=== PATIENT | male | born 1955 | race Caucasian/White ===

== ENCOUNTER 2017-12-14 12:03 | Inpatient (IN) | payer OTHER, BC ==
[2017-12-14 12:18] LABS: ADD MAN DIFF? NO
[2017-12-14] MEDS: SOD CHLORIDE 0.9% 1,000 ML IV ×2 (12:18→14:00)
[2017-12-14 12:20] LABS: WHITE BLOOD COUNT 12.7 10^3/ul (4.8-10.8)
[2017-12-14 12:20] LABS: BASOPHIL # 0.1 10^3/ul (0.0-0.1); BASOPHILS % 0.4 % (0.0-2.0); EOSINOPHILS # 0.3 10^3/ul (0.0-0.5); EOSINOPHILS % 2.1 % (0.0-7.0); HEMATOCRIT 42.4 % (42.0-52.0); HEMOGLOBIN 13.8 g/dl (14.0-18.0); LYMPHOCYTES # 3.5 10^3/ul (0.8-2.9); LYMPHOCYTES % 27.6 % (15.0-51.0); MEAN CORPUSCULAR HEMOGLOBIN 29.4 pg (29.0-33.0); MEAN CORPUSCULAR HGB CONC 32.5 g/dl (32.0-37.0); MEAN CORPUSCULAR VOLUME 90.4 fl (82.0-101.0); MEAN PLATELET VOLUME 11.3 fl (7.4-10.4); MONOCYTE # 0.2 10^3/ul (0.3-0.9); MONOCYTES % 1.4 % (0.0-11.0); NEUTROPHIL # 8.3 10^3/ul (1.6-7.5); NEUTROPHILS % 65.5 % (39.0-77.0); PLATELET COUNT 253 10^3/UL (140-415); RED BLOOD COUNT 4.69 10^6/ul (4.70-6.10); RED CELL DISTRIBUTION WIDTH 12.6 % (11.5-14.5)
[2017-12-14] MEDS ORDERED: IODIXANOL LOCM 100 ML BTL (12:20)
[2017-12-14] MEDS ORDERED: HEPARIN 1000 UNITS/ML 10 ML INJ (12:20)
[2017-12-14] MEDS ORDERED: LIDOCAINE 1% (MDV) 20 ML INJ (12:20)
[2017-12-14] MEDS ORDERED: NITROGLYCERIN (IC) 100 MCG/ML INJ (12:21)
[2017-12-14] MEDS ORDERED: FENTAnyl 50 MCG/ML VIAL (12:21)
[2017-12-14] MEDS ORDERED: VERAPAMIL 5 MG INJ (12:21)
[2017-12-14] MEDS ORDERED: SOD CHLORIDE 0.9% 500 ML (12:21)
[2017-12-14] MEDS ORDERED: MIDAZOLAM 1 MG/ML 2 ML INJ (12:21)
[2017-12-14] MEDS ORDERED: PROPOFOL 0 ML (12:23)
[2017-12-14] MEDS ORDERED: POTASSIUM CHLORIDE 50 ML (12:24)
[2017-12-14] MEDS ORDERED: PROPOFOL 100 ML ×2 (12:26→17:42)
[2017-12-14] MEDS ORDERED: ONDANSETRON 4 MG INJ IV (12:30)
[2017-12-14] MEDS ORDERED: ACETAMINOPHEN 325 MG TAB PO (12:30)
[2017-12-14 12:37] LABS: INR 1.35; PROTIME 16.9 Sec (11.9-14.9); PT RATIO 1.3
[2017-12-14 12:39] LABS: ANION GAP 23 (8-16); CHLORIDE 105 mmol/L (97-110)
[2017-12-14 12:42] LABS: BLOOD UREA NITROGEN 18 mg/dl (7-20); CREATININE 1.07 mg/dl (0.61-1.24); POTASSIUM 4.4 mmol/L (3.5-5.1); SODIUM 139 mmol/L (135-144)
[2017-12-14 12:44] LABS: CALCIUM 7.7 mg/dl (8.4-10.2); CARBON DIOXIDE 15 mmol/L (21-31); GLUCOSE 374 mg/dl (70-220)
[2017-12-14] MEDS ORDERED: CA CHLORIDE 10% 10 ML SYRINGE (12:47)
[2017-12-14 12:50] LABS: B-TYPE NATRIURETIC PEPTIDE 882 PG/ML (0-125)
[2017-12-14 12:52] LABS: TROPONIN-I 0.133 ng/ml (0.00-0.12)
[2017-12-14] MEDS ORDERED: MAGNESIUM SULFATE 2 GM/50 ML 50 ML (12:59)
[2017-12-14] MEDS ORDERED: ASPIRIN 325 MG TAB (13:14)
[2017-12-14] MEDS ORDERED: TICAGRELOR 90 MG TABLET (13:14)
[2017-12-14] MEDS ORDERED: VECURONIUM 10 MG VIAL IV (14:30)
[2017-12-14] MEDS ORDERED: VECURONIUM 100 MG in DEXTROSE 5% 100 ML IV (14:30)
[2017-12-14] MEDS ORDERED: PROPOFOL 100 ML IV (14:30)
[2017-12-14] MEDS ORDERED: hydrALAzine 20 MG INJ (14:55)
[2017-12-14] MEDS: hydrALAzine 20 MG INJ IV (15:00)
[2017-12-14] MEDS: BENAZEPRIL 20 MG TAB NGT (16:44)
[2017-12-14] MEDS: PROPOFOL 100 ML IV (18:00)
[2017-12-14 19:23] LABS: CREATINE KINASE 714 IU/L (23-200)
[2017-12-14 19:31] LABS: ADD UMIC YES; UR ASCORBIC ACID NEGATIVE (NEGATIVE); UR BILIRUBIN (Dip) NEGATIVE (NEGATIVE); UR BLOOD (Dip) 1+ mg/dL (NEGATIVE); UR CLARITY SLIGHTLY CLOUDY (CLEAR); UR COLOR YELLOW (YELLOW); UR GLUCOSE (Dip) 1+ mg/dL (NEGATIVE); UR KETONES (Dip) NEGATIVE (NEGATIVE); UR LEUKOCYTE ESTERASE (Dip) NEGATIVE Leu/ul (NEGATIVE); UR NITRITE (Dip) NEGATIVE (NEGATIVE); UR RBC 8 /HPF (0-5); UR SPECIFIC GRAVITY (Dip) 1.043 (1.003-1.030); UR TOTAL PROTEIN (Dip) 1+ mg/dl (NEGATIVE); UR UROBILINOGEN (Dip) NEGATIVE (NEGATIVE); UR WBC 9 /HPF (0-5)
[2017-12-14 19:38] LABS: AMPHETAMINE/METHAMPHETAMINE Negative (NEGATIVE); BARBITURATES Negative (NEGATIVE); BENZODIAZEPINES Positive (NEGATIVE); CANNABINOIDS Negative (NEGATIVE); COCAINE Negative (NEGATIVE); OPIATES Negative (NEGATIVE)
[2017-12-14 20:14] LABS: AADO2 Arterial 76.5 mmHg (7.0-24.0); Allen Test ACCEPTAB; Arterial Base Excess -2.7 mmol/L (-3.0-3); Arterial Blood Gas Oxygen Sat 97.4 mmHG (95.0-98.0); Arterial COHb 0.3 % (0.0-3.0); Arterial Fraction of Oxyhgb 96.8 % (93.0-99.0); Arterial HCO3 19.5 mmol/L (22.0-26.0); Arterial MetHb 0.3 % (0.0-1.5); Arterial Total Hemglobin 15.5 g/dl (12.0-18.0); MODE VENT - AC; Site Left Radial
[2017-12-14] MEDS: ATORVASTATIN 80 MG TAB PO (21:11)
[2017-12-14] MEDS: TICAGRELOR 90 MG TABLET PO (21:12)
[2017-12-15] MEDS ORDERED: ONDANSETRON 4 MG INJ IV
[2017-12-15] MEDS: ACETAMINOPHEN 325 MG TAB PO ×2 (00:13→07:44)
[2017-12-15 00:29] LABS: CREATINE KINASE 1204 IU/L (23-200)
[2017-12-15 00:42] LABS: CK INDEX 2.1
[2017-12-15 00:46] LABS: ADD UMIC YES; UR ASCORBIC ACID NEGATIVE (NEGATIVE); UR BILIRUBIN (Dip) NEGATIVE (NEGATIVE); UR BLOOD (Dip) 2+ mg/dL (NEGATIVE); UR CLARITY SLIGHTLY CLOUDY (CLEAR); UR COLOR YELLOW (YELLOW); UR GLUCOSE (Dip) NEGATIVE (NEGATIVE); UR KETONES (Dip) NEGATIVE (NEGATIVE); UR LEUKOCYTE ESTERASE (Dip) TRACE Leu/ul (NEGATIVE); UR NITRITE (Dip) NEGATIVE (NEGATIVE); UR RBC 2 /HPF (0-5); UR SPECIFIC GRAVITY (Dip) 1.031 (1.003-1.030); UR TOTAL PROTEIN (Dip) 1+ mg/dl (NEGATIVE); UR UROBILINOGEN (Dip) NEGATIVE (NEGATIVE); UR WBC 6 /HPF (0-5)
[2017-12-15] MEDS: PROPOFOL 100 ML IV ×2 (01:36→06:07)
[2017-12-15] MEDS: SOD CHLORIDE 0.9% 1,000 ML IV (01:43)
[2017-12-15 05:55] LABS: ADD MAN DIFF? NO
[2017-12-15 06:01] LABS: BASOPHILS % 0.2 % (0.0-2.0); HEMATOCRIT 40.5 % (42.0-52.0); HEMOGLOBIN 13.7 g/dl (14.0-18.0); MEAN CORPUSCULAR HEMOGLOBIN 29.3 pg (29.0-33.0); MEAN CORPUSCULAR HGB CONC 33.8 g/dl (32.0-37.0); MEAN CORPUSCULAR VOLUME 86.7 fl (82.0-101.0); MEAN PLATELET VOLUME 11.7 fl (7.4-10.4); MONOCYTES % 5.7 % (0.0-11.0); NEUTROPHILS % 87.4 % (39.0-77.0); PLATELET COUNT 244 10^3/UL (140-415); RED BLOOD COUNT 4.67 10^6/ul (4.70-6.10); RED CELL DISTRIBUTION WIDTH 13.2 % (11.5-14.5)
[2017-12-15 06:01] LABS: WHITE BLOOD COUNT 17.2 10^3/ul (4.8-10.8)
[2017-12-15] MEDS: PANTOPRAZOLE (EC) 40 MG TAB PO (06:07)
[2017-12-15 06:37] LABS: CHOL/HDL RATIO 4.2 RATIO; HDL CHOLESTEROL 29 mg/dl (30-78); LDL CHOLESTEROL,CALCULATED 67 mg/dl; TRIGLYCERIDES 129 mg/dl (0-149)
[2017-12-15 06:37] LABS: CHOLESTEROL 122 mg/dl (100-200)
[2017-12-15 06:39] LABS: BLOOD UREA NITROGEN 22 mg/dl (7-20); CALCIUM 8.5 mg/dl (8.4-10.2); CARBON DIOXIDE 22 mmol/L (21-31); CHLORIDE 110 mmol/L (97-110); CREATININE 1.19 mg/dl (0.61-1.24); GLUCOSE 115 mg/dl (70-220); MAGNESIUM 1.7 mg/dl (1.7-2.5); PHOSPHORUS 3.5 mg/dl (2.5-4.9); SODIUM 144 mmol/L (135-144)
[2017-12-15 06:58] LABS: THYROID STIMULATING HORMONE 0.299 MIU/L (0.465-4.680)
[2017-12-15 07:40] LABS: ANION GAP 15 (8-16)
[2017-12-15 07:43] LABS: POTASSIUM 3.3 mmol/L (3.5-5.1)
[2017-12-15] MEDS: BENAZEPRIL 20 MG TAB NGT (07:44)
[2017-12-15] MEDS: TICAGRELOR 90 MG TABLET PO ×2 (07:46→20:31)
[2017-12-15 08:23] LABS: AADO2 Arterial 70.1 mmHg (7.0-24.0); Allen Test ACCEPTAB; Arterial Base Excess -0.2 mmol/L (-3.0-3); Arterial Blood Gas Oxygen Sat 97.6 mmHG (95.0-98.0); Arterial COHb 0.8 % (0.0-3.0); Arterial Fraction of Oxyhgb 96.8 % (93.0-99.0); Arterial HCO3 22.1 mmol/L (22.0-26.0); Arterial MetHb 0 % (0.0-1.5); Arterial Total Hemglobin 14.7 g/dl (12.0-18.0); Arterial pCO2 30.1 mmhg (35-45); MODE VENT - AC; Site Left Radial
[2017-12-15] MEDS: ASPIRIN (EC) 81 MG TAB PO (09:00)
[2017-12-15] MEDS ORDERED: LORAZEPAM 2 MG INJ (10:19)
[2017-12-15] MEDS: SPIRONOLACTONE 25 MG TAB NGT (10:30)
[2017-12-15] MEDS ORDERED: POTASSIUM CHLORIDE 50 ML IVPB ×2 (10:30→11:30)
[2017-12-15] MEDS: POTASSIUM CHLORIDE 100 ML IVPB (11:00)
[2017-12-15] MEDS: METOPROLOL 5 MG INJ IV ×2 (12:50→20:22)
[2017-12-15] MEDS: MAGNESIUM SULFATE 2 GM/50 ML 50 ML IVPB (13:06)
[2017-12-15] MEDS: LORAZEPAM 2 MG INJ IV (13:09)
[2017-12-15] MEDS: MIDAZOLAM (DRIP) 50 mg/50 mL 50 ML IV (13:15)
[2017-12-15] MEDS: LEVETIRACETAM 500 MG TAB NGT ×2 (20:29→22:07)
[2017-12-15] MEDS: ATORVASTATIN 80 MG TAB PO (20:30)
[2017-12-15] MEDS: FAMOTIDINE 20 MG TAB NGT (20:30)
[2017-12-16] MEDS: MIDAZOLAM (DRIP) 50 mg/50 mL 50 ML IV (00:38)
[2017-12-16] MEDS: METOPROLOL 5 MG INJ IV ×3 (03:29→11:22)
[2017-12-16] MEDS: hydrALAzine 20 MG INJ IV ×3 (05:40→23:15)
[2017-12-16] MEDS: PROPOFOL 100 ML IV (05:43)
[2017-12-16 05:46] LABS: ADD MAN DIFF? NO
[2017-12-16 05:54] LABS: BASOPHILS % 0.1 % (0.0-2.0); EOSINOPHILS % 0.3 % (0.0-7.0); HEMATOCRIT 39.7 % (42.0-52.0); HEMOGLOBIN 13.1 g/dl (14.0-18.0); LYMPHOCYTES # 1.2 10^3/ul (0.8-2.9); LYMPHOCYTES % 9.2 % (15.0-51.0); MEAN CORPUSCULAR HEMOGLOBIN 29.4 pg (29.0-33.0); MEAN PLATELET VOLUME 11.8 fl (7.4-10.4); MONOCYTE # 0.9 10^3/ul (0.3-0.9); MONOCYTES % 6.6 % (0.0-11.0); NEUTROPHIL # 11.3 10^3/ul (1.6-7.5); NEUTROPHILS % 83.4 % (39.0-77.0); PLATELET COUNT 227 10^3/UL (140-415); RED BLOOD COUNT 4.46 10^6/ul (4.70-6.10); RED CELL DISTRIBUTION WIDTH 13.2 % (11.5-14.5)
[2017-12-16 05:54] LABS: WHITE BLOOD COUNT 13.5 10^3/ul (4.8-10.8)
[2017-12-16 06:40] LABS: ANION GAP 12 (8-16); BLOOD UREA NITROGEN 30 mg/dl (7-20); CALCIUM 8.6 mg/dl (8.4-10.2); CARBON DIOXIDE 25 mmol/L (21-31); CHLORIDE 112 mmol/L (97-110); CREATININE 1.16 mg/dl (0.61-1.24); GLUCOSE 124 mg/dl (70-220); MAGNESIUM 2.3 mg/dl (1.7-2.5); POTASSIUM 3.7 mmol/L (3.5-5.1); SODIUM 145 mmol/L (135-144)
[2017-12-16] MEDS: SPIRONOLACTONE 25 MG TAB NGT (07:55)
[2017-12-16] MEDS: ASPIRIN (EC) 81 MG TAB PO (07:55)
[2017-12-16] MEDS: LEVETIRACETAM 500 MG TAB NGT (07:55)
[2017-12-16] MEDS: FAMOTIDINE 20 MG TAB NGT ×2 (07:55→20:24)
[2017-12-16] MEDS: TICAGRELOR 90 MG TABLET PO ×2 (08:06→20:26)
[2017-12-16 08:13] LABS: Allen Test ACCEPTAB; Arterial Base Excess 0.1 mmol/L (-3.0-3); Arterial COHb 0.8 % (0.0-3.0); Arterial Fraction of Oxyhgb 95.9 % (93.0-99.0); Arterial HCO3 23.3 mmol/L (22.0-26.0); Arterial MetHb 0.3 % (0.0-1.5); Arterial Total Hemglobin 14.1 g/dl (12.0-18.0); Arterial pCO2 33.6 mmhg (35-45); MODE VENT - AC; Site Right Radial
[2017-12-16] MEDS: BENAZEPRIL 20 MG TAB NGT ×3 (08:29→13:28)
[2017-12-16] MEDS: morphine 2 MG INJ IV ×3 (15:28→20:42)
[2017-12-16] MEDS: ATORVASTATIN 80 MG TAB PO (20:24)
[2017-12-16] MEDS: LEVETIRACETAM (100 MG/ML) 5ML CUP NGT (20:25)
[2017-12-17] MEDS: METOPROLOL 5 MG INJ IV ×4 (01:59→18:17)
[2017-12-17] MEDS: MIDAZOLAM (DRIP) 50 mg/50 mL 50 ML IV (03:03)
[2017-12-17 04:57] LABS: ADD MAN DIFF? NO
[2017-12-17] MEDS: hydrALAzine 20 MG INJ IV ×3 (05:00→18:16)
[2017-12-17 05:01] LABS: BASOPHILS % 0.2 % (0.0-2.0); EOSINOPHILS % 0.1 % (0.0-7.0); HEMATOCRIT 39.9 % (42.0-52.0); HEMOGLOBIN 13.2 g/dl (14.0-18.0); LYMPHOCYTES # 0.9 10^3/ul (0.8-2.9); LYMPHOCYTES % 7.2 % (15.0-51.0); MEAN CORPUSCULAR HEMOGLOBIN 29.5 pg (29.0-33.0); MEAN CORPUSCULAR HGB CONC 33.1 g/dl (32.0-37.0); MEAN CORPUSCULAR VOLUME 89.3 fl (82.0-101.0); MEAN PLATELET VOLUME 11.7 fl (7.4-10.4); MONOCYTE # 0.8 10^3/ul (0.3-0.9); MONOCYTES % 6.4 % (0.0-11.0); NEUTROPHIL # 11.1 10^3/ul (1.6-7.5); NEUTROPHILS % 85.6 % (39.0-77.0); PLATELET COUNT 262 10^3/UL (140-415); RED BLOOD COUNT 4.47 10^6/ul (4.70-6.10); RED CELL DISTRIBUTION WIDTH 13.4 % (11.5-14.5)
[2017-12-17] MEDS: morphine 2 MG INJ IV ×2 (05:01→17:23)
[2017-12-17 05:31] LABS: ANION GAP 11 (8-16); BLOOD UREA NITROGEN 37 mg/dl (7-20); CALCIUM 8.9 mg/dl (8.4-10.2); CARBON DIOXIDE 27 mmol/L (21-31); CHLORIDE 113 mmol/L (97-110); CREATININE 1.03 mg/dl (0.61-1.24); GLUCOSE 151 mg/dl (70-220); MAGNESIUM 2.1 mg/dl (1.7-2.5); PHOSPHORUS 2.8 mg/dl (2.5-4.9); POTASSIUM 3.9 mmol/L (3.5-5.1); SODIUM 147 mmol/L (135-144)
[2017-12-17] MEDS: FAMOTIDINE 20 MG TAB NGT ×2 (09:07→20:04)
[2017-12-17] MEDS: ASPIRIN (EC) 81 MG TAB PO (09:07)
[2017-12-17] MEDS: CHLORTHALIDONE 25 MG TAB GTB (09:07)
[2017-12-17] MEDS: SPIRONOLACTONE 25 MG TAB NGT (09:07)
[2017-12-17] MEDS: BENAZEPRIL 40 MG TAB NGT (09:08)
[2017-12-17] MEDS: LEVETIRACETAM (100 MG/ML) 5ML CUP NGT ×2 (09:09→20:03)
[2017-12-17] MEDS: TICAGRELOR 90 MG TABLET PO ×2 (09:11→20:04)
[2017-12-17] MEDS: AMLODIPINE 2.5 MG TAB NGT (17:34)
[2017-12-17] MEDS: ACETAMINOPHEN 325 MG TAB PO (20:03)
[2017-12-17] MEDS: ATORVASTATIN 80 MG TAB PO (20:04)
[2017-12-18] MEDS: METOPROLOL 5 MG INJ IV ×3 (00:06→05:53)
[2017-12-18] MEDS: hydrALAzine 20 MG INJ IV ×2 (01:06→05:52)
[2017-12-18] MEDS: morphine 2 MG INJ IV (01:07)
[2017-12-18 05:40] LABS: ADD MAN DIFF? NO
[2017-12-18 05:46] LABS: WHITE BLOOD COUNT 14.2 10^3/ul (4.8-10.8)
[2017-12-18 05:46] LABS: BASOPHILS % 0.1 % (0.0-2.0); EOSINOPHILS % 0.1 % (0.0-7.0); HEMATOCRIT 40.4 % (42.0-52.0); HEMOGLOBIN 13.1 g/dl (14.0-18.0); LYMPHOCYTES % 6.9 % (15.0-51.0); MEAN CORPUSCULAR HEMOGLOBIN 29.2 pg (29.0-33.0); MEAN CORPUSCULAR HGB CONC 32.4 g/dl (32.0-37.0); MEAN CORPUSCULAR VOLUME 90.2 fl (82.0-101.0); MEAN PLATELET VOLUME 11.8 fl (7.4-10.4); MONOCYTE # 1.2 10^3/ul (0.3-0.9); MONOCYTES % 8.5 % (0.0-11.0); NEUTROPHIL # 11.9 10^3/ul (1.6-7.5); NEUTROPHILS % 83.9 % (39.0-77.0); PLATELET COUNT 248 10^3/UL (140-415); RED BLOOD COUNT 4.48 10^6/ul (4.70-6.10); RED CELL DISTRIBUTION WIDTH 13.5 % (11.5-14.5)
[2017-12-18 06:00] LABS: ALANINE AMINOTRANSFERASE 50 IU/L (13-69); ALBUMIN 3.7 g/dl (3.3-4.9); ALBUMIN/GLOBULIN RATIO 1.42; ALKALINE PHOSPHATASE 55 IU/L (42-121); ANION GAP 12 (8-16); ASPARTATE AMINO TRANSFERASE 47 IU/L (15-46); BILIRUBIN,INDIRECT 0.6 mg/dl (0-1.1); BILIRUBIN,TOTAL 0.6 mg/dl (0.2-1.3); BLOOD UREA NITROGEN 35 mg/dl (7-20); CARBON DIOXIDE 28 mmol/L (21-31); CHLORIDE 111 mmol/L (97-110); CREATININE 1.04 mg/dl (0.61-1.24); GLUCOSE 162 mg/dl (70-220); MAGNESIUM 1.8 mg/dl (1.7-2.5); PHOSPHORUS 2.5 mg/dl (2.5-4.9); POTASSIUM 3.2 mmol/L (3.5-5.1); SODIUM 148 mmol/L (135-144); TOTAL PROTEIN 6.3 g/dl (6.1-8.1)
[2017-12-18] MEDS ORDERED: POTASSIUM CHLORIDE (SR) 20 MEQ TAB PO ×2 (06:53→10:30)
[2017-12-18] MEDS ORDERED: POTASSIUM CHLORIDE 20 MEQ POWDER FOR ORAL SOLN NGT (07:30)
[2017-12-18] MEDS: MAGNESIUM SULFATE 1 GM/D5W 100 ML IVPB (07:59)
[2017-12-18] MEDS: POTASSIUM CHLORIDE 20 MEQ POWDER FOR ORAL SOLN NGT ×2 (08:00→10:29)
[2017-12-18] MEDS: LEVETIRACETAM (100 MG/ML) 5ML CUP NGT ×2 (08:54→20:50)
[2017-12-18] MEDS: ASPIRIN (EC) 81 MG TAB PO (08:55)
[2017-12-18] MEDS: FAMOTIDINE 20 MG TAB NGT ×2 (08:55→20:50)
[2017-12-18] MEDS: SPIRONOLACTONE 25 MG TAB NGT (08:55)
[2017-12-18] MEDS: AMLODIPINE 2.5 MG TAB NGT (08:57)
[2017-12-18] MEDS: CHLORTHALIDONE 25 MG TAB GTB (08:57)
[2017-12-18] MEDS: BENAZEPRIL 40 MG TAB NGT (08:57)
[2017-12-18] MEDS: TICAGRELOR 90 MG TABLET PO ×2 (08:58→20:54)
[2017-12-18] MEDS ORDERED: DEXTROSE 5% 1,000 ML IV (09:30)
[2017-12-18] MEDS: D5W + KCL 20 MEQ 1,000 ML IV (11:35)
[2017-12-18] MEDS: PROPOFOL 100 ML IV (12:30)
[2017-12-18] MEDS: LIDOCAINE 1% (MPF) 5 ML VIAL SC (12:30)
[2017-12-18] MEDS: ISOSORBIDE DINITRATE 10 MG TAB NGT ×2 (12:55→20:51)
[2017-12-18 15:12] LABS: ADD UMIC YES; UR ASCORBIC ACID NEGATIVE (NEGATIVE); UR BILIRUBIN (Dip) NEGATIVE (NEGATIVE); UR BLOOD (Dip) 3+ mg/dL (NEGATIVE); UR CLARITY SLIGHTLY CLOUDY (CLEAR); UR COLOR RED (YELLOW); UR GLUCOSE (Dip) NEGATIVE (NEGATIVE); UR KETONES (Dip) NEGATIVE (NEGATIVE); UR LEUKOCYTE ESTERASE (Dip) 2+ Leu/ul (NEGATIVE); UR NITRITE (Dip) NEGATIVE (NEGATIVE); UR RBC > 182 /HPF (0-5); UR SPECIFIC GRAVITY (Dip) 1.019 (1.003-1.030); UR TOTAL PROTEIN (Dip) 2+ mg/dl (NEGATIVE); UR UROBILINOGEN (Dip) 2+ mg/dL (NEGATIVE); UR WBC 93 /HPF (0-5)
[2017-12-18] MEDS ORDERED: POLYETHYLENE GLYCOL 17 GM PACKET GTB (19:00)
[2017-12-18] MEDS: ATORVASTATIN 80 MG TAB PO (20:50)
[2017-12-18] MEDS: LEVETIRACETAM (100 MG/ML) 5ML CUP GTB (23:56)
[2017-12-19] MEDS: LORAZEPAM 2 MG INJ IV ×2 (00:06→16:11)
[2017-12-19] MEDS: PROPOFOL 100 ML IV ×2 (00:30→12:30)
[2017-12-19 05:03] LABS: ADD MAN DIFF? NO
[2017-12-19 05:09] LABS: WHITE BLOOD COUNT 15.1 10^3/ul (4.8-10.8)
[2017-12-19 05:09] LABS: ABNORMAL IP MESSAGE 1; BASOPHILS % 0.3 % (0.0-2.0); EOSINOPHILS # 0.1 10^3/ul (0.0-0.5); EOSINOPHILS % 0.5 % (0.0-7.0); HEMATOCRIT 37.7 % (42.0-52.0); HEMOGLOBIN 12.6 g/dl (14.0-18.0); LYMPHOCYTES # 1.1 10^3/ul (0.8-2.9); LYMPHOCYTES % 7.1 % (15.0-51.0); MEAN CORPUSCULAR HGB CONC 33.4 g/dl (32.0-37.0); MEAN CORPUSCULAR VOLUME 89.8 fl (82.0-101.0); MEAN PLATELET VOLUME 12.1 fl (7.4-10.4); MONOCYTE # 1.6 10^3/ul (0.3-0.9); MONOCYTES % 10.3 % (0.0-11.0); NEUTROPHIL # 12.3 10^3/ul (1.6-7.5); NEUTROPHILS % 81.3 % (39.0-77.0); PLATELET COUNT 236 10^3/UL (140-415); POSITIVE DIFF @See below; RED CELL DISTRIBUTION WIDTH 13.3 % (11.5-14.5)
[2017-12-19 05:22] LABS: ANION GAP 14 (8-16); BLOOD UREA NITROGEN 38 mg/dl (7-20); CALCIUM 8.8 mg/dl (8.4-10.2); CARBON DIOXIDE 29 mmol/L (21-31); CHLORIDE 107 mmol/L (97-110); CREATININE 1.08 mg/dl (0.61-1.24); GLUCOSE 152 mg/dl (70-220); MAGNESIUM 1.8 mg/dl (1.7-2.5); POTASSIUM 3.4 mmol/L (3.5-5.1); SODIUM 147 mmol/L (135-144)
[2017-12-19] MEDS: MAGNESIUM SULFATE 1 GM/D5W 100 ML IVPB (08:28)
[2017-12-19] MEDS: SPIRONOLACTONE 25 MG TAB NGT (08:31)
[2017-12-19] MEDS: ASPIRIN (EC) 81 MG TAB PO (08:31)
[2017-12-19] MEDS: POTASSIUM CHLORIDE 20 MEQ POWDER FOR ORAL SOLN NGT (08:31)
[2017-12-19] MEDS: FAMOTIDINE 20 MG TAB NGT ×2 (08:32→21:46)
[2017-12-19] MEDS: ISOSORBIDE DINITRATE 10 MG TAB NGT ×3 (08:32→21:47)
[2017-12-19] MEDS: AMLODIPINE 2.5 MG TAB NGT (08:33)
[2017-12-19] MEDS: CHLORTHALIDONE 25 MG TAB GTB (08:33)
[2017-12-19] MEDS: BENAZEPRIL 40 MG TAB NGT (08:34)
[2017-12-19] MEDS: LEVETIRACETAM (100 MG/ML) 5ML CUP NGT ×2 (08:35→21:48)
[2017-12-19] MEDS: TICAGRELOR 90 MG TABLET PO ×2 (08:49→21:59)
[2017-12-19] MEDS: HEPARIN (10 UNITS/ML) 5ML SYG IV (12:00)
[2017-12-19] MEDS: FOSPHENYTOIN (PE) 1,000 MG in SOD CHLORIDE 0.9% 80 ML IVPB (18:29)
[2017-12-19] MEDS: ATORVASTATIN 80 MG TAB PO (21:47)
[2017-12-19] MEDS: PHENYTOIN 100 MG INJ IV (22:00)
[2017-12-19] MEDS: D5W + KCL 20 MEQ 1,000 ML IV (22:01)
[2017-12-20] MEDS: PROPOFOL 100 ML IV ×2 (02:00→11:19)
[2017-12-20 05:20] LABS: ADD MAN DIFF? NO
[2017-12-20 05:30] LABS: ABNORMAL IP MESSAGE 1; BASOPHILS % 0.2 % (0.0-2.0); EOSINOPHILS # 0.2 10^3/ul (0.0-0.5); EOSINOPHILS % 0.8 % (0.0-7.0); HEMATOCRIT 37.6 % (42.0-52.0); LYMPHOCYTES # 1.2 10^3/ul (0.8-2.9); LYMPHOCYTES % 6.6 % (15.0-51.0); MEAN CORPUSCULAR HEMOGLOBIN 28.8 pg (29.0-33.0); MEAN CORPUSCULAR HGB CONC 31.9 g/dl (32.0-37.0); MEAN CORPUSCULAR VOLUME 90.4 fl (82.0-101.0); MEAN PLATELET VOLUME 12.5 fl (7.4-10.4); MONOCYTE # 1.7 10^3/ul (0.3-0.9); MONOCYTES % 9.3 % (0.0-11.0); NEUTROPHIL # 14.5 10^3/ul (1.6-7.5); NEUTROPHILS % 82.4 % (39.0-77.0); PLATELET COUNT 225 10^3/UL (140-415); POSITIVE DIFF @See below; RED BLOOD COUNT 4.16 10^6/ul (4.70-6.10); RED CELL DISTRIBUTION WIDTH 13.1 % (11.5-14.5)
[2017-12-20 05:30] LABS: WHITE BLOOD COUNT 17.7 10^3/ul (4.8-10.8)
[2017-12-20] MEDS: PHENYTOIN 100 MG INJ IV ×3 (06:09→21:43)
[2017-12-20 06:13] LABS: PHENYTOIN (DILANTIN) 12.4 ug/ml (10.0-20.0)
[2017-12-20 06:14] LABS: ANION GAP 14 (8-16); BLOOD UREA NITROGEN 47 mg/dl (7-20); CALCIUM 8.5 mg/dl (8.4-10.2); CARBON DIOXIDE 27 mmol/L (21-31); CHLORIDE 104 mmol/L (97-110); CREATININE 1.48 mg/dl (0.61-1.24); GLUCOSE 165 mg/dl (70-220); POTASSIUM 3.6 mmol/L (3.5-5.1); SODIUM 141 mmol/L (135-144)
[2017-12-20] MEDS: LORAZEPAM 2 MG INJ IV ×3 (06:23→21:42)
[2017-12-20] MEDS: ASPIRIN (EC) 81 MG TAB PO (08:14)
[2017-12-20] MEDS: CHLORTHALIDONE 25 MG TAB GTB (08:14)
[2017-12-20] MEDS: SPIRONOLACTONE 25 MG TAB NGT (08:14)
[2017-12-20] MEDS: FAMOTIDINE 20 MG TAB NGT ×2 (08:14→21:44)
[2017-12-20] MEDS: LEVETIRACETAM (100 MG/ML) 5ML CUP NGT ×2 (08:14→21:42)
[2017-12-20] MEDS: BENAZEPRIL 40 MG TAB NGT (08:15)
[2017-12-20] MEDS: ISOSORBIDE DINITRATE 10 MG TAB NGT ×3 (08:15→21:43)
[2017-12-20] MEDS: TICAGRELOR 90 MG TABLET PO ×2 (08:22→21:50)
[2017-12-20] MEDS: NS + KCL 20 MEQ 1,000 ML IV ×3 (10:00→22:26)
[2017-12-20] MEDS: SOD CHLORIDE 0.9% 1,000 ML IV (10:15)
[2017-12-20] MEDS ORDERED: SOD CHLORIDE 0.9% 250 ML IV (10:30)
[2017-12-20] MEDS ORDERED: GLUCOSE GEL 15 GRAM TUBE PO ×2 (15:00)
[2017-12-20] MEDS ORDERED: GLUCAGON 1 MG INJ IM (15:00)
[2017-12-20] MEDS ORDERED: GLUCOSE GEL 15 GRAM TUBE BUCCAL (15:00)
[2017-12-20] MEDS ORDERED: DEXTROSE 50% 50 ML SYRINGE IV ×2 (15:00)
[2017-12-20 15:02] LABS: HEMOGLOBIN A1C 5.4 % (0-5.9)
[2017-12-20] MEDS: CEFTRIAXONE 1 GM/50 ML (PMX) 50 ML IVPB (15:32)
[2017-12-20] MEDS: INSULIN ASPART [NOVOLOG] 3 ML PEN SC ×2 (17:00→21:00)
[2017-12-20] MEDS: ATORVASTATIN 80 MG TAB PO (21:43)
[2017-12-21] MEDS: PROPOFOL 100 ML IV ×2 (00:30→11:56)
[2017-12-21] MEDS: INSULIN ASPART [NOVOLOG] 3 ML PEN SC ×6 (01:17→21:00)
[2017-12-21 04:44] LABS: ADD MAN DIFF? NO
[2017-12-21 04:46] LABS: ABNORMAL IP MESSAGE 1; BASOPHILS % 0.2 % (0.0-2.0); EOSINOPHILS # 0.1 10^3/ul (0.0-0.5); EOSINOPHILS % 0.9 % (0.0-7.0); HEMATOCRIT 33.1 % (42.0-52.0); HEMOGLOBIN 10.9 g/dl (14.0-18.0); LYMPHOCYTES # 1.5 10^3/ul (0.8-2.9); LYMPHOCYTES % 9.1 % (15.0-51.0); MEAN CORPUSCULAR HEMOGLOBIN 29.8 pg (29.0-33.0); MEAN CORPUSCULAR HGB CONC 32.9 g/dl (32.0-37.0); MEAN CORPUSCULAR VOLUME 90.4 fl (82.0-101.0); MEAN PLATELET VOLUME 12.1 fl (7.4-10.4); MONOCYTE # 1.5 10^3/ul (0.3-0.9); MONOCYTES % 9.4 % (0.0-11.0); NEUTROPHIL # 12.9 10^3/ul (1.6-7.5); NEUTROPHILS % 79.1 % (39.0-77.0); PLATELET COUNT 201 10^3/UL (140-415); POSITIVE DIFF @See below; RED BLOOD COUNT 3.66 10^6/ul (4.70-6.10)
[2017-12-21 04:46] LABS: WHITE BLOOD COUNT 16.3 10^3/ul (4.8-10.8)
[2017-12-21 05:06] LABS: ANION GAP 11 (8-16); BLOOD UREA NITROGEN 48 mg/dl (7-20); CALCIUM 8.3 mg/dl (8.4-10.2); CARBON DIOXIDE 27 mmol/L (21-31); CHLORIDE 106 mmol/L (97-110); CREATININE 1.37 mg/dl (0.61-1.24); GLUCOSE 118 mg/dl (70-220); POTASSIUM 4.1 mmol/L (3.5-5.1); SODIUM 140 mmol/L (135-144)
[2017-12-21] MEDS: PHENYTOIN 100 MG INJ IV ×3 (05:27→21:52)
[2017-12-21] MEDS: NS + KCL 20 MEQ 1,000 ML IV ×2 (07:52→17:35)
[2017-12-21] MEDS: ASPIRIN (EC) 81 MG TAB PO (08:04)
[2017-12-21] MEDS: SPIRONOLACTONE 25 MG TAB NGT (08:04)
[2017-12-21] MEDS: FAMOTIDINE 20 MG TAB NGT ×2 (08:04→20:45)
[2017-12-21] MEDS: ISOSORBIDE DINITRATE 10 MG TAB NGT ×3 (08:04→20:45)
[2017-12-21] MEDS: CHLORTHALIDONE 25 MG TAB GTB (08:05)
[2017-12-21] MEDS: BENAZEPRIL 40 MG TAB NGT (08:07)
[2017-12-21] MEDS: LEVETIRACETAM (100 MG/ML) 5ML CUP NGT ×2 (08:07→20:47)
[2017-12-21] MEDS: TICAGRELOR 90 MG TABLET PO ×2 (08:08→20:46)
[2017-12-21 11:02] LABS: AADO2 Arterial 101.3 mmHg (7.0-24.0); Allen Test ACCEPTAB; Arterial Base Excess 2.4 mmol/L (-3.0-3); Arterial Blood Gas Oxygen Sat 94.3 mmHG (95.0-98.0); Arterial COHb 0.7 % (0.0-3.0); Arterial Fraction of Oxyhgb 93.5 % (93.0-99.0); Arterial HCO3 25.6 mmol/L (22.0-26.0); Arterial MetHb 0.1 % (0.0-1.5); Arterial Total Hemglobin 11.8 g/dl (12.0-18.0); Arterial pCO2 34.7 mmhg (35-45); MODE VENT - AC; Site Right Radial
[2017-12-21] MEDS: CEFTRIAXONE 1 GM/50 ML (PMX) 50 ML IVPB (16:06)
[2017-12-21] MEDS: LORAZEPAM 2 MG INJ IV ×2 (16:11→18:28)
[2017-12-21] MEDS: MIDAZOLAM (DRIP) 50 mg/50 mL 50 ML IV (16:28)
[2017-12-21] MEDS: ATORVASTATIN 80 MG TAB PO (20:45)
[2017-12-22] MEDS: PROPOFOL 100 ML IV ×3 (00:12→23:48)
[2017-12-22] MEDS: INSULIN ASPART [NOVOLOG] 3 ML PEN SC ×4 (01:00→18:00)
[2017-12-22] MEDS: NS + KCL 20 MEQ 1,000 ML IV ×2 (03:27→16:36)
[2017-12-22 04:47] LABS: ADD MAN DIFF? NO
[2017-12-22 04:50] LABS: BASOPHILS % 0.2 % (0.0-2.0); EOSINOPHILS # 0.1 10^3/ul (0.0-0.5); EOSINOPHILS % 0.9 % (0.0-7.0); HEMATOCRIT 30.6 % (42.0-52.0); HEMOGLOBIN 10.1 g/dl (14.0-18.0); LYMPHOCYTES # 1.3 10^3/ul (0.8-2.9); LYMPHOCYTES % 7.9 % (15.0-51.0); MEAN CORPUSCULAR HEMOGLOBIN 30.1 pg (29.0-33.0); MEAN CORPUSCULAR VOLUME 91.1 fl (82.0-101.0); MEAN PLATELET VOLUME 12.8 fl (7.4-10.4); MONOCYTE # 1.5 10^3/ul (0.3-0.9); MONOCYTES % 9.1 % (0.0-11.0); NEUTROPHIL # 12.9 10^3/ul (1.6-7.5); NEUTROPHILS % 80.9 % (39.0-77.0); PLATELET COUNT 182 10^3/UL (140-415); RED BLOOD COUNT 3.36 10^6/ul (4.70-6.10); RED CELL DISTRIBUTION WIDTH 13.1 % (11.5-14.5)
[2017-12-22 05:20] LABS: ANION GAP 11 (8-16); BLOOD UREA NITROGEN 47 mg/dl (7-20); CALCIUM 8.3 mg/dl (8.4-10.2); CARBON DIOXIDE 26 mmol/L (21-31); CHLORIDE 106 mmol/L (97-110); CREATININE 1.21 mg/dl (0.61-1.24); GLUCOSE 148 mg/dl (70-220); SODIUM 139 mmol/L (135-144)
[2017-12-22] MEDS: PHENYTOIN 100 MG INJ IV ×3 (05:46→22:04)
[2017-12-22] MEDS: ACETAMINOPHEN 325 MG TAB PO ×2 (07:51→16:08)
[2017-12-22] MEDS: BENAZEPRIL 40 MG TAB NGT (09:12)
[2017-12-22] MEDS: SPIRONOLACTONE 25 MG TAB NGT (09:12)
[2017-12-22] MEDS: CHLORTHALIDONE 25 MG TAB GTB (09:13)
[2017-12-22] MEDS: ASPIRIN (EC) 81 MG TAB PO (09:13)
[2017-12-22] MEDS: ISOSORBIDE DINITRATE 10 MG TAB NGT ×3 (09:21→21:06)
[2017-12-22] MEDS: FAMOTIDINE 20 MG TAB NGT ×2 (09:21→21:12)
[2017-12-22] MEDS: TICAGRELOR 90 MG TABLET PO ×2 (09:22→21:14)
[2017-12-22] MEDS: LEVETIRACETAM (100 MG/ML) 5ML CUP NGT ×2 (09:36→21:06)
[2017-12-22] MEDS: CEFTRIAXONE 1 GM/50 ML (PMX) 50 ML IVPB (15:03)
[2017-12-22] MEDS: ATORVASTATIN 80 MG TAB PO (21:07)
[2017-12-23] MEDS: NS + KCL 20 MEQ 1,000 ML IV ×2 (00:12→18:50)
[2017-12-23] MEDS: ACETAMINOPHEN 325 MG TAB PO ×2 (00:25→12:54)
[2017-12-23 05:21] LABS: ADD MAN DIFF? NO
[2017-12-23 05:32] LABS: WHITE BLOOD COUNT 12.7 10^3/ul (4.8-10.8)
[2017-12-23 05:32] LABS: ABNORMAL IP MESSAGE 1; BASOPHILS % 0.2 % (0.0-2.0); EOSINOPHILS # 0.2 10^3/ul (0.0-0.5); EOSINOPHILS % 1.5 % (0.0-7.0); HEMATOCRIT 30.5 % (42.0-52.0); HEMOGLOBIN 9.9 g/dl (14.0-18.0); LYMPHOCYTES # 1.2 10^3/ul (0.8-2.9); LYMPHOCYTES % 9.6 % (15.0-51.0); MEAN CORPUSCULAR HEMOGLOBIN 29.6 pg (29.0-33.0); MEAN CORPUSCULAR HGB CONC 32.5 g/dl (32.0-37.0); MEAN PLATELET VOLUME 13.4 fl (7.4-10.4); MONOCYTE # 1.2 10^3/ul (0.3-0.9); MONOCYTES % 9.3 % (0.0-11.0); NEUTROPHILS % 78.3 % (39.0-77.0); PLATELET COUNT 178 10^3/UL (140-415); POSITIVE DIFF @See below; RED BLOOD COUNT 3.35 10^6/ul (4.70-6.10); RED CELL DISTRIBUTION WIDTH 12.6 % (11.5-14.5)
[2017-12-23] MEDS: INSULIN ASPART [NOVOLOG] 3 ML PEN SC ×5 (05:36→23:27)
[2017-12-23] MEDS: PHENYTOIN 100 MG INJ IV ×3 (05:37→21:08)
[2017-12-23 05:52] LABS: LACTIC ACID 1.6 mmol/L (0.5-2.0)
[2017-12-23 07:12] LABS: ANION GAP 11 (8-16); BLOOD UREA NITROGEN 32 mg/dl (7-20); CALCIUM 8.2 mg/dl (8.4-10.2); CARBON DIOXIDE 25 mmol/L (21-31); CHLORIDE 106 mmol/L (97-110); CREATININE 0.97 mg/dl (0.61-1.24); GLUCOSE 125 mg/dl (70-220); POTASSIUM 3.9 mmol/L (3.5-5.1); SODIUM 138 mmol/L (135-144)
[2017-12-23] MEDS: LEVETIRACETAM (100 MG/ML) 5ML CUP NGT ×2 (09:26→21:07)
[2017-12-23] MEDS: FAMOTIDINE 20 MG TAB NGT ×2 (09:29→21:08)
[2017-12-23] MEDS: ASPIRIN (EC) 81 MG TAB PO (09:30)
[2017-12-23] MEDS: CHLORTHALIDONE 25 MG TAB GTB (09:30)
[2017-12-23] MEDS: SPIRONOLACTONE 25 MG TAB NGT (09:30)
[2017-12-23] MEDS: ISOSORBIDE DINITRATE 10 MG TAB NGT ×3 (09:31→21:09)
[2017-12-23] MEDS: BENAZEPRIL 40 MG TAB NGT (09:33)
[2017-12-23] MEDS: TICAGRELOR 90 MG TABLET PO ×2 (09:33→21:12)
[2017-12-23] MEDS: VALPROATE INJ 1,000 MG in SOD CHLORIDE 0.9% 100 ML IVPB (12:11)
[2017-12-23] MEDS: PROPOFOL 100 ML IV ×2 (14:38→22:50)
[2017-12-23] MEDS: CEFTRIAXONE 1 GM/50 ML (PMX) 50 ML IVPB (14:47)
[2017-12-23] MEDS: VALPROATE INJ 500 MG in SOD CHLORIDE 0.9% 50 ML IVPB ×2 (18:48→23:29)
[2017-12-23] MEDS: ATORVASTATIN 80 MG TAB PO (21:08)
[2017-12-24] MEDS: LORAZEPAM 2 MG INJ IV ×5 (03:24→21:17)
[2017-12-24] MEDS: NS + KCL 20 MEQ 1,000 ML IV ×2 (04:00→14:23)
[2017-12-24] MEDS: INSULIN ASPART [NOVOLOG] 3 ML PEN SC ×3 (06:00→17:12)
[2017-12-24] MEDS: VALPROATE INJ 500 MG in SOD CHLORIDE 0.9% 50 ML IVPB ×3 (06:21→17:19)
[2017-12-24] MEDS: PHENYTOIN 100 MG INJ IV ×3 (06:21→21:17)
[2017-12-24] MEDS: SPIRONOLACTONE 25 MG TAB NGT (08:30)
[2017-12-24] MEDS: ISOSORBIDE DINITRATE 10 MG TAB NGT ×3 (08:30→21:19)
[2017-12-24] MEDS: FAMOTIDINE 20 MG TAB NGT ×2 (08:30→21:17)
[2017-12-24] MEDS: CHLORTHALIDONE 25 MG TAB GTB (08:30)
[2017-12-24] MEDS: BENAZEPRIL 40 MG TAB NGT (08:31)
[2017-12-24] MEDS: ASPIRIN (EC) 81 MG TAB PO (08:31)
[2017-12-24] MEDS: LEVETIRACETAM (100 MG/ML) 5ML CUP NGT ×2 (08:31→21:17)
[2017-12-24] MEDS: TICAGRELOR 90 MG TABLET PO ×2 (08:33→21:27)
[2017-12-24] MEDS: ACETAMINOPHEN 325 MG TAB PO ×2 (11:20→21:52)
[2017-12-24] MEDS: PROPOFOL 100 ML IV (11:30)
[2017-12-24] MEDS: CEFTRIAXONE 1 GM/50 ML (PMX) 50 ML IVPB (14:31)
[2017-12-24] MEDS: ATORVASTATIN 80 MG TAB PO (21:18)
[2017-12-25] MEDS: PROPOFOL 100 ML IV ×3 (00:30→23:52)
[2017-12-25] MEDS: VALPROATE INJ 500 MG in SOD CHLORIDE 0.9% 50 ML IVPB ×5 (00:31→23:52)
[2017-12-25] MEDS: NS + KCL 20 MEQ 1,000 ML IV ×3 (00:31→21:38)
[2017-12-25 05:46] LABS: ADD MAN DIFF? NO
[2017-12-25 05:56] LABS: ABNORMAL IP MESSAGE 1; BASOPHILS % 0.1 % (0.0-2.0); EOSINOPHILS # 0.1 10^3/ul (0.0-0.5); EOSINOPHILS % 0.3 % (0.0-7.0); HEMATOCRIT 29.4 % (42.0-52.0); HEMOGLOBIN 9.5 g/dl (14.0-18.0); LYMPHOCYTES # 1.1 10^3/ul (0.8-2.9); LYMPHOCYTES % 5.8 % (15.0-51.0); MEAN CORPUSCULAR HEMOGLOBIN 29.5 pg (29.0-33.0); MEAN CORPUSCULAR HGB CONC 32.3 g/dl (32.0-37.0); MEAN CORPUSCULAR VOLUME 91.3 fl (82.0-101.0); MEAN PLATELET VOLUME 13.5 fl (7.4-10.4); MONOCYTE # 1.4 10^3/ul (0.3-0.9); MONOCYTES % 7.5 % (0.0-11.0); NEUTROPHIL # 15.9 10^3/ul (1.6-7.5); NEUTROPHILS % 85.4 % (39.0-77.0); PLATELET COUNT 244 10^3/UL (140-415); POSITIVE DIFF @See below; RED BLOOD COUNT 3.22 10^6/ul (4.70-6.10); RED CELL DISTRIBUTION WIDTH 12.8 % (11.5-14.5)
[2017-12-25 05:56] LABS: WHITE BLOOD COUNT 18.6 10^3/ul (4.8-10.8)
[2017-12-25] MEDS: INSULIN ASPART [NOVOLOG] 3 ML PEN SC ×5 (06:00→23:52)
[2017-12-25] MEDS: PHENYTOIN 100 MG INJ IV ×3 (06:04→21:35)
[2017-12-25 06:15] LABS: ANION GAP 13 (8-16); BLOOD UREA NITROGEN 30 mg/dl (7-20); CALCIUM 8.1 mg/dl (8.4-10.2); CARBON DIOXIDE 25 mmol/L (21-31); CHLORIDE 106 mmol/L (97-110); CREATININE 1.17 mg/dl (0.61-1.24); GLUCOSE 127 mg/dl (70-220); POTASSIUM 4.4 mmol/L (3.5-5.1); SODIUM 140 mmol/L (135-144)
[2017-12-25 08:28] LABS: AADO2 Arterial 93.9 mmHg (7.0-24.0); Allen Test ACCEPTAB; Arterial Base Excess 1.4 mmol/L (-3.0-3); Arterial Blood Gas Oxygen Sat 96.6 mmHG (95.0-98.0); Arterial COHb 0.5 % (0.0-3.0); Arterial Fraction of Oxyhgb 95.8 % (93.0-99.0); Arterial HCO3 23.2 mmol/L (22.0-26.0); Arterial MetHb 0.3 % (0.0-1.5); Arterial Total Hemglobin 11.5 g/dl (12.0-18.0); Arterial pCO2 28.2 mmhg (35-45); MODE VENT - AC; Site Right Radial
[2017-12-25] MEDS: LEVETIRACETAM (100 MG/ML) 5ML CUP NGT ×2 (09:03→21:34)
[2017-12-25] MEDS: FAMOTIDINE 20 MG TAB NGT ×2 (09:04→21:35)
[2017-12-25] MEDS: ASPIRIN (EC) 81 MG TAB PO (09:04)
[2017-12-25] MEDS: ISOSORBIDE DINITRATE 10 MG TAB NGT ×3 (09:04→21:36)
[2017-12-25] MEDS: SPIRONOLACTONE 25 MG TAB NGT (09:04)
[2017-12-25] MEDS: CHLORTHALIDONE 25 MG TAB GTB (09:04)
[2017-12-25] MEDS: BENAZEPRIL 40 MG TAB NGT (09:04)
[2017-12-25] MEDS: TICAGRELOR 90 MG TABLET PO ×2 (09:10→21:57)
[2017-12-25] MEDS: CEFTRIAXONE 1 GM/50 ML (PMX) 50 ML IVPB (15:37)
[2017-12-25] MEDS: LORAZEPAM 2 MG INJ IV (16:51)
[2017-12-25] MEDS: ATORVASTATIN 80 MG TAB PO (21:35)
[2017-12-26 05:09] LABS: Allen Test UP; Arterial Base Excess 1.1 mmol/L (-3.0-3); Arterial Blood Gas Oxygen Sat 96.2 mmHG (95.0-98.0); Arterial COHb 0.5 % (0.0-3.0); Arterial Fraction of Oxyhgb 95.6 % (93.0-99.0); Arterial HCO3 23.6 mmol/L (22.0-26.0); Arterial MetHb 0.1 % (0.0-1.5); Arterial Total Hemglobin 9.9 g/dl (12.0-18.0); Arterial pCO2 29.9 mmhg (35-45); MODE VENT - AC; Site Left Radial
[2017-12-26] MEDS: PHENYTOIN 100 MG INJ IV ×3 (05:24→21:25)
[2017-12-26] MEDS: VALPROATE INJ 500 MG in SOD CHLORIDE 0.9% 50 ML IVPB ×3 (05:24→18:23)
[2017-12-26 05:30] LABS: ADD MAN DIFF? NO
[2017-12-26] MEDS: INSULIN ASPART [NOVOLOG] 3 ML PEN SC ×2 (05:32→21:00)
[2017-12-26] MEDS: NS + KCL 20 MEQ 1,000 ML IV ×3 (05:33→21:24)
[2017-12-26 05:35] LABS: WHITE BLOOD COUNT 19.2 10^3/ul (4.8-10.8)
[2017-12-26 05:35] LABS: BASOPHILS % 0.1 % (0.0-2.0); EOSINOPHILS # 0.1 10^3/ul (0.0-0.5); EOSINOPHILS % 0.3 % (0.0-7.0); HEMATOCRIT 27.5 % (42.0-52.0); HEMOGLOBIN 8.9 g/dl (14.0-18.0); LYMPHOCYTES # 1.4 10^3/ul (0.8-2.9); LYMPHOCYTES % 7.1 % (15.0-51.0); MEAN CORPUSCULAR HEMOGLOBIN 29.6 pg (29.0-33.0); MEAN CORPUSCULAR HGB CONC 32.4 g/dl (32.0-37.0); MEAN CORPUSCULAR VOLUME 91.4 fl (82.0-101.0); MEAN PLATELET VOLUME 12.8 fl (7.4-10.4); MONOCYTE # 1.4 10^3/ul (0.3-0.9); MONOCYTES % 7.2 % (0.0-11.0); NEUTROPHIL # 16.1 10^3/ul (1.6-7.5); NEUTROPHILS % 84.2 % (39.0-77.0); PLATELET COUNT 252 10^3/UL (140-415); RED BLOOD COUNT 3.01 10^6/ul (4.70-6.10)
[2017-12-26 05:59] LABS: LACTIC ACID 1.3 mmol/L (0.5-2.0)
[2017-12-26 06:25] LABS: ANION GAP 14 (8-16); BLOOD UREA NITROGEN 32 mg/dl (7-20); CALCIUM 7.9 mg/dl (8.4-10.2); CARBON DIOXIDE 24 mmol/L (21-31); CHLORIDE 106 mmol/L (97-110); CREATININE 1.11 mg/dl (0.61-1.24); GLUCOSE 118 mg/dl (70-220); POTASSIUM 4.4 mmol/L (3.5-5.1); SODIUM 140 mmol/L (135-144)
[2017-12-26] MEDS: LEVETIRACETAM (100 MG/ML) 5ML CUP NGT ×2 (08:48→21:11)
[2017-12-26] MEDS: ASPIRIN (EC) 81 MG TAB PO (08:49)
[2017-12-26] MEDS: SPIRONOLACTONE 25 MG TAB NGT (08:49)
[2017-12-26] MEDS: CHLORTHALIDONE 25 MG TAB GTB (08:49)
[2017-12-26] MEDS: BENAZEPRIL 40 MG TAB NGT (08:50)
[2017-12-26] MEDS: ISOSORBIDE DINITRATE 10 MG TAB NGT ×3 (08:50→21:11)
[2017-12-26] MEDS: FAMOTIDINE 20 MG TAB NGT ×2 (08:50→21:11)
[2017-12-26] MEDS: TICAGRELOR 90 MG TABLET PO ×2 (08:54→21:21)
[2017-12-26] MEDS: PROPOFOL 100 ML IV (11:29)
[2017-12-26] MEDS: CEFTRIAXONE 1 GM/50 ML (PMX) 50 ML IVPB (15:30)
[2017-12-26] MEDS: ATORVASTATIN 80 MG TAB PO (21:12)
[2017-12-26] MEDS: LORAZEPAM 2 MG INJ IV (21:47)
[2017-12-27] MEDS: PROPOFOL 100 ML IV ×2 (00:30→11:28)
[2017-12-27] MEDS: VALPROATE INJ 500 MG in SOD CHLORIDE 0.9% 50 ML IVPB ×4 (00:55→18:19)
[2017-12-27] MEDS: LORAZEPAM 2 MG INJ IV (01:51)
[2017-12-27] MEDS: PHENYTOIN 100 MG INJ IV ×3 (05:04→22:42)
[2017-12-27 05:46] LABS: ADD MAN DIFF? NO
[2017-12-27 05:56] LABS: BASOPHILS % 0.1 % (0.0-2.0); EOSINOPHILS # 0.2 10^3/ul (0.0-0.5); EOSINOPHILS % 0.9 % (0.0-7.0); HEMATOCRIT 24.7 % (42.0-52.0); HEMOGLOBIN 8.1 g/dl (14.0-18.0); LYMPHOCYTES # 1.1 10^3/ul (0.8-2.9); LYMPHOCYTES % 6.2 % (15.0-51.0); MEAN CORPUSCULAR HEMOGLOBIN 29.7 pg (29.0-33.0); MEAN CORPUSCULAR HGB CONC 32.8 g/dl (32.0-37.0); MEAN CORPUSCULAR VOLUME 90.5 fl (82.0-101.0); MEAN PLATELET VOLUME 12.9 fl (7.4-10.4); MONOCYTES % 5.8 % (0.0-11.0); NEUTROPHIL # 14.6 10^3/ul (1.6-7.5); NEUTROPHILS % 85.8 % (39.0-77.0); PLATELET COUNT 275 10^3/UL (140-415); RED BLOOD COUNT 2.73 10^6/ul (4.70-6.10); RED CELL DISTRIBUTION WIDTH 13.2 % (11.5-14.5)
[2017-12-27 06:08] LABS: ANION GAP 12 (8-16); BLOOD UREA NITROGEN 34 mg/dl (7-20); CALCIUM 8.1 mg/dl (8.4-10.2); CARBON DIOXIDE 24 mmol/L (21-31); CHLORIDE 108 mmol/L (97-110); CREATININE 1.08 mg/dl (0.61-1.24); GLUCOSE 99 mg/dl (70-220); POTASSIUM 4.5 mmol/L (3.5-5.1); SODIUM 139 mmol/L (135-144)
[2017-12-27 06:09] LABS: INR 1.36; PT RATIO 1.3
[2017-12-27] MEDS: NS + KCL 20 MEQ 1,000 ML IV (07:34)
[2017-12-27] MEDS: INSULIN ASPART [NOVOLOG] 3 ML PEN SC ×2 (09:00→20:42)
[2017-12-27] MEDS: LEVETIRACETAM (100 MG/ML) 5ML CUP NGT ×2 (09:29→20:16)
[2017-12-27] MEDS: FAMOTIDINE 20 MG TAB NGT ×2 (09:29→20:17)
[2017-12-27] MEDS: ISOSORBIDE DINITRATE 10 MG TAB NGT ×3 (09:29→20:17)
[2017-12-27] MEDS: CHLORTHALIDONE 25 MG TAB GTB (09:30)
[2017-12-27] MEDS: SPIRONOLACTONE 25 MG TAB NGT (09:30)
[2017-12-27] MEDS: ASPIRIN (EC) 81 MG TAB PO (09:30)
[2017-12-27] MEDS: BENAZEPRIL 40 MG TAB NGT (09:31)
[2017-12-27] MEDS: TICAGRELOR 90 MG TABLET PO ×2 (09:32→20:18)
[2017-12-27] MEDS: D5-NS + KCL 20 MEQ 1,000 ML IV (13:36)
[2017-12-27] MEDS: CEFTRIAXONE 1 GM/50 ML (PMX) 50 ML IVPB (14:22)
[2017-12-27] MEDS: ATORVASTATIN 80 MG TAB PO (20:17)
[2017-12-28] MEDS: D5-NS + KCL 20 MEQ 1,000 ML IV ×3 (00:15→21:31)
[2017-12-28] MEDS: PROPOFOL 100 ML IV ×3 (00:15→22:47)
[2017-12-28] MEDS: VALPROATE INJ 500 MG in SOD CHLORIDE 0.9% 50 ML IVPB ×5 (00:15→23:38)
[2017-12-28] MEDS: PHENYTOIN 100 MG INJ IV ×3 (05:27→21:38)
[2017-12-28 05:44] LABS: ADD MAN DIFF? NO
[2017-12-28 06:05] LABS: WHITE BLOOD COUNT 12.4 10^3/ul (4.8-10.8)
[2017-12-28 06:05] LABS: BASOPHILS % 0.2 % (0.0-2.0); EOSINOPHILS # 0.2 10^3/ul (0.0-0.5); EOSINOPHILS % 1.8 % (0.0-7.0); HEMOGLOBIN 8.1 g/dl (14.0-18.0); LYMPHOCYTES % 8.3 % (15.0-51.0); MEAN CORPUSCULAR HEMOGLOBIN 29.7 pg (29.0-33.0); MEAN CORPUSCULAR HGB CONC 32.4 g/dl (32.0-37.0); MEAN CORPUSCULAR VOLUME 91.6 fl (82.0-101.0); MEAN PLATELET VOLUME 12.9 fl (7.4-10.4); MONOCYTE # 0.8 10^3/ul (0.3-0.9); MONOCYTES % 6.6 % (0.0-11.0); NEUTROPHIL # 10.1 10^3/ul (1.6-7.5); NEUTROPHILS % 82.1 % (39.0-77.0); PLATELET COUNT 324 10^3/UL (140-415); RED BLOOD COUNT 2.73 10^6/ul (4.70-6.10); RED CELL DISTRIBUTION WIDTH 13.2 % (11.5-14.5)
[2017-12-28 06:32] LABS: ALBUMIN 2.5 g/dl (3.3-4.9); ANION GAP 12 (8-16); BLOOD UREA NITROGEN 29 mg/dl (7-20); CALCIUM 8.1 mg/dl (8.4-10.2); CARBON DIOXIDE 23 mmol/L (21-31); CHLORIDE 108 mmol/L (97-110); CREATININE 0.98 mg/dl (0.61-1.24); GLUCOSE 124 mg/dl (70-220); MAGNESIUM 2.2 mg/dl (1.7-2.5); PHOSPHORUS 3.5 mg/dl (2.5-4.9); POTASSIUM 4.1 mmol/L (3.5-5.1); SODIUM 139 mmol/L (135-144)
[2017-12-28] MEDS: LEVETIRACETAM (100 MG/ML) 5ML CUP NGT ×2 (08:15→20:30)
[2017-12-28] MEDS: ASPIRIN (EC) 81 MG TAB PO (08:16)
[2017-12-28] MEDS: FAMOTIDINE 20 MG TAB NGT ×2 (08:16→20:30)
[2017-12-28] MEDS: ISOSORBIDE DINITRATE 10 MG TAB NGT ×3 (08:16→20:30)
[2017-12-28] MEDS: SPIRONOLACTONE 25 MG TAB NGT (08:16)
[2017-12-28] MEDS: CHLORTHALIDONE 25 MG TAB GTB (08:16)
[2017-12-28] MEDS: TICAGRELOR 90 MG TABLET PO (08:18)
[2017-12-28] MEDS: BENAZEPRIL 40 MG TAB NGT (08:18)
[2017-12-28] MEDS: INSULIN ASPART [NOVOLOG] 3 ML PEN SC ×2 (08:37→20:44)
[2017-12-28] MEDS ORDERED: POTASSIUM CHLORIDE 20 MEQ in DEXTROSE 5%-0.9% NACL 1,000 ML IV (14:30)
[2017-12-28] MEDS: CEFTRIAXONE 1 GM/50 ML (PMX) 50 ML IVPB (15:08)
[2017-12-28] MEDS: EPTIFIBATIDE 100 ML IV (16:58)
[2017-12-28] MEDS: ATORVASTATIN 80 MG TAB PO (20:31)
[2017-12-28] MEDS: POTASSIUM CHLORIDE 20 MEQ in DEXTROSE 5%-0.9% NACL 1,000 ML IV (21:32)
[2017-12-29] MEDS: PHENYTOIN 100 MG INJ IV ×3 (05:00→21:03)
[2017-12-29] MEDS: VALPROATE INJ 500 MG in SOD CHLORIDE 0.9% 50 ML IVPB ×3 (05:01→18:44)
[2017-12-29 05:47] LABS: ADD MAN DIFF? NO
[2017-12-29 06:05] LABS: BASOPHILS % 0.2 % (0.0-2.0); EOSINOPHILS # 0.3 10^3/ul (0.0-0.5); EOSINOPHILS % 3.2 % (0.0-7.0); HEMATOCRIT 26.8 % (42.0-52.0); HEMOGLOBIN 8.7 g/dl (14.0-18.0); LYMPHOCYTES % 9.9 % (15.0-51.0); MEAN CORPUSCULAR HEMOGLOBIN 29.7 pg (29.0-33.0); MEAN CORPUSCULAR HGB CONC 32.5 g/dl (32.0-37.0); MEAN CORPUSCULAR VOLUME 91.5 fl (82.0-101.0); MEAN PLATELET VOLUME 12.5 fl (7.4-10.4); MONOCYTE # 0.8 10^3/ul (0.3-0.9); MONOCYTES % 7.6 % (0.0-11.0); NEUTROPHIL # 8.1 10^3/ul (1.6-7.5); NEUTROPHILS % 77.9 % (39.0-77.0); PLATELET COUNT 382 10^3/UL (140-415); RED BLOOD COUNT 2.93 10^6/ul (4.70-6.10); RED CELL DISTRIBUTION WIDTH 12.9 % (11.5-14.5)
[2017-12-29 06:05] LABS: WHITE BLOOD COUNT 10.4 10^3/ul (4.8-10.8)
[2017-12-29 06:52] LABS: ALBUMIN 2.6 g/dl (3.3-4.9); ANION GAP 11 (8-16); BLOOD UREA NITROGEN 19 mg/dl (7-20); CALCIUM 8.1 mg/dl (8.4-10.2); CARBON DIOXIDE 27 mmol/L (21-31); CHLORIDE 109 mmol/L (97-110); CREATININE 0.85 mg/dl (0.61-1.24); GLUCOSE 114 mg/dl (70-220); MAGNESIUM 2.2 mg/dl (1.7-2.5); POTASSIUM 3.7 mmol/L (3.5-5.1); SODIUM 143 mmol/L (135-144)
[2017-12-29] MEDS: POTASSIUM CHLORIDE 20 MEQ in DEXTROSE 5%-0.9% NACL 1,000 ML IV (08:37)
[2017-12-29] MEDS: LEVETIRACETAM (100 MG/ML) 5ML CUP NGT ×2 (08:42→20:47)
[2017-12-29] MEDS: ASPIRIN (EC) 81 MG TAB PO (08:43)
[2017-12-29] MEDS: ISOSORBIDE DINITRATE 10 MG TAB NGT ×3 (08:43→20:47)
[2017-12-29] MEDS: FAMOTIDINE 20 MG TAB NGT ×2 (08:43→20:48)
[2017-12-29] MEDS: BENAZEPRIL 40 MG TAB NGT (08:43)
[2017-12-29] MEDS: SPIRONOLACTONE 25 MG TAB NGT (08:43)
[2017-12-29] MEDS: INSULIN ASPART [NOVOLOG] 3 ML PEN SC ×2 (09:00→21:00)
[2017-12-29] MEDS: CHLORTHALIDONE 25 MG TAB GTB (09:14)
[2017-12-29] MEDS: EPTIFIBATIDE 100 ML IV (09:40)
[2017-12-29] MEDS: PROPOFOL 100 ML IV (12:16)
[2017-12-29] MEDS ORDERED: LIDOCAINE 1%/EPI 30 ML INJ (12:40)
[2017-12-29] MEDS ORDERED: ROCURONIUM 50 MG INJ (13:06)
[2017-12-29] MEDS ORDERED: MIDAZOLAM 1 MG/ML 2 ML INJ ×2 (13:06→18:54)
[2017-12-29] MEDS ORDERED: FENTAnyl 50 MCG/ML VIAL (13:06)
[2017-12-29] MEDS ORDERED: NEOSTIGMINE 3 MG/3 ML SYRINGE (13:06)
[2017-12-29] MEDS ORDERED: GLYCOPYRROLATE 0.4 MG INJ (13:06)
[2017-12-29] MEDS ORDERED: PROPOFOL 20 ML (13:06)
[2017-12-29] MEDS ORDERED: LIDOCAINE 2% (SDV) 5 ML INJ (13:06)
[2017-12-29] MEDS: LIDOCAINE 1%/EPI 30 ML INJ (13:46)
[2017-12-29] MEDS: CEFTRIAXONE 1 GM/50 ML (PMX) 50 ML IVPB (16:16)
[2017-12-29] MEDS: CEFAZOLIN 2 GM/50 ML (PMX) 50 ML IVPB (18:12)
[2017-12-29] MEDS: ATORVASTATIN 80 MG TAB PO (20:47)
[2017-12-29] MEDS: TICAGRELOR 90 MG TABLET PO (20:48)
[2017-12-30] MEDS: PROPOFOL 100 ML IV (00:08)
[2017-12-30] MEDS: VALPROATE INJ 500 MG in SOD CHLORIDE 0.9% 50 ML IVPB ×4 (01:25→18:11)
[2017-12-30] MEDS: POTASSIUM CHLORIDE 20 MEQ in DEXTROSE 5%-0.9% NACL 1,000 ML IV ×2 (04:38→15:26)
[2017-12-30 04:57] LABS: ADD MAN DIFF? NO
[2017-12-30 05:04] LABS: BASOPHILS % 0.1 % (0.0-2.0); EOSINOPHILS # 0.3 10^3/ul (0.0-0.5); EOSINOPHILS % 2.1 % (0.0-7.0); HEMATOCRIT 25.8 % (42.0-52.0); HEMOGLOBIN 8.3 g/dl (14.0-18.0); LYMPHOCYTES # 0.9 10^3/ul (0.8-2.9); LYMPHOCYTES % 7.3 % (15.0-51.0); MEAN CORPUSCULAR HEMOGLOBIN 30.2 pg (29.0-33.0); MEAN CORPUSCULAR HGB CONC 32.2 g/dl (32.0-37.0); MEAN CORPUSCULAR VOLUME 93.8 fl (82.0-101.0); MEAN PLATELET VOLUME 11.8 fl (7.4-10.4); MONOCYTE # 0.7 10^3/ul (0.3-0.9); MONOCYTES % 5.6 % (0.0-11.0); NEUTROPHIL # 10.5 10^3/ul (1.6-7.5); NEUTROPHILS % 84.2 % (39.0-77.0); PLATELET COUNT 488 10^3/UL (140-415); RED BLOOD COUNT 2.75 10^6/ul (4.70-6.10); RED CELL DISTRIBUTION WIDTH 12.6 % (11.5-14.5)
[2017-12-30 05:04] LABS: WHITE BLOOD COUNT 12.4 10^3/ul (4.8-10.8)
[2017-12-30 05:28] LABS: ALBUMIN 2.3 g/dl (3.3-4.9); ANION GAP 13 (8-16); BLOOD UREA NITROGEN 18 mg/dl (7-20); CALCIUM 7.9 mg/dl (8.4-10.2); CARBON DIOXIDE 24 mmol/L (21-31); CHLORIDE 110 mmol/L (97-110); CREATININE 0.81 mg/dl (0.61-1.24); GLUCOSE 143 mg/dl (70-220); MAGNESIUM 1.9 mg/dl (1.7-2.5); PHOSPHORUS 2.6 mg/dl (2.5-4.9); SODIUM 143 mmol/L (135-144)
[2017-12-30] MEDS: PHENYTOIN 100 MG INJ IV ×3 (06:31→21:03)
[2017-12-30] MEDS: CHLORTHALIDONE 25 MG TAB GTB (08:08)
[2017-12-30] MEDS: LEVETIRACETAM (100 MG/ML) 5ML CUP NGT ×2 (08:08→20:41)
[2017-12-30] MEDS: FAMOTIDINE 20 MG TAB NGT ×2 (08:08→20:41)
[2017-12-30] MEDS: SPIRONOLACTONE 25 MG TAB NGT (08:08)
[2017-12-30] MEDS: BENAZEPRIL 40 MG TAB NGT (08:09)
[2017-12-30] MEDS: ASPIRIN (EC) 81 MG TAB PO (08:10)
[2017-12-30] MEDS: ISOSORBIDE DINITRATE 10 MG TAB NGT ×2 (08:10→12:55)
[2017-12-30] MEDS: TICAGRELOR 90 MG TABLET PO ×3 (08:11→20:48)
[2017-12-30] MEDS: INSULIN ASPART [NOVOLOG] 3 ML PEN SC ×2 (08:40→20:49)
[2017-12-30 13:25] LABS: ADD MAN DIFF? NO
[2017-12-30 13:28] LABS: WHITE BLOOD COUNT 15.7 10^3/ul (4.8-10.8)
[2017-12-30 13:28] LABS: BASOPHILS % 0.2 % (0.0-2.0); EOSINOPHILS # 0.2 10^3/ul (0.0-0.5); EOSINOPHILS % 1.2 % (0.0-7.0); HEMATOCRIT 22.7 % (42.0-52.0); HEMOGLOBIN 7.4 g/dl (14.0-18.0); LYMPHOCYTES # 1.2 10^3/ul (0.8-2.9); LYMPHOCYTES % 7.7 % (15.0-51.0); MEAN CORPUSCULAR HEMOGLOBIN 30.5 pg (29.0-33.0); MEAN CORPUSCULAR HGB CONC 32.6 g/dl (32.0-37.0); MEAN CORPUSCULAR VOLUME 93.4 fl (82.0-101.0); MEAN PLATELET VOLUME 11.9 fl (7.4-10.4); MONOCYTE # 0.9 10^3/ul (0.3-0.9); MONOCYTES % 5.8 % (0.0-11.0); NEUTROPHIL # 13.1 10^3/ul (1.6-7.5); NEUTROPHILS % 83.3 % (39.0-77.0); RED BLOOD COUNT 2.43 10^6/ul (4.70-6.10); RED CELL DISTRIBUTION WIDTH 12.7 % (11.5-14.5)
[2017-12-30 13:38] LABS: PLATELET COUNT 545 10^3/UL (140-415)
[2017-12-30] MEDS: SOD CHLORIDE 0.9% 500 ML IV (14:27)
[2017-12-30] MEDS: SILVER NITRATE SWAB TOP (18:09)
[2017-12-30 19:20] LABS: IMMEDIATE SPIN CROSSMATCH 1 3
[2017-12-30] MEDS: ATORVASTATIN 80 MG TAB PO (20:41)
[2017-12-31] MEDS: VALPROATE INJ 500 MG in SOD CHLORIDE 0.9% 50 ML IVPB ×4 (00:23→18:12)
[2017-12-31] MEDS: POTASSIUM CHLORIDE 20 MEQ in DEXTROSE 5%-0.9% NACL 1,000 ML IV ×3 (00:24→20:42)
[2017-12-31 00:37] LABS: ADD MAN DIFF? NO
[2017-12-31 00:38] LABS: ABNORMAL IP MESSAGE 1; BASOPHILS % 0.1 % (0.0-2.0); EOSINOPHILS # 0.2 10^3/ul (0.0-0.5); EOSINOPHILS % 1.3 % (0.0-7.0); HEMATOCRIT 20.4 % (42.0-52.0); LYMPHOCYTES # 1.5 10^3/ul (0.8-2.9); LYMPHOCYTES % 9.9 % (15.0-51.0); MEAN CORPUSCULAR HEMOGLOBIN 29.5 pg (29.0-33.0); MEAN CORPUSCULAR HGB CONC 32.4 g/dl (32.0-37.0); MEAN CORPUSCULAR VOLUME 91.1 fl (82.0-101.0); MEAN PLATELET VOLUME 11.7 fl (7.4-10.4); MONOCYTE # 1.1 10^3/ul (0.3-0.9); MONOCYTES % 7.2 % (0.0-11.0); NEUTROPHIL # 11.9 10^3/ul (1.6-7.5); NEUTROPHILS % 78.7 % (39.0-77.0); PLATELET COUNT 380 10^3/UL (140-415); POSITIVE DIFF @See below; RED BLOOD COUNT 2.24 10^6/ul (4.70-6.10)
[2017-12-31 00:38] LABS: WHITE BLOOD COUNT 15.1 10^3/ul (4.8-10.8)
[2017-12-31 00:43] LABS: HEMOGLOBIN 6.6 g/dl (14.0-18.0)
[2017-12-31 01:08] LABS: ADD MAN DIFF? NO
[2017-12-31 01:09] LABS: WHITE BLOOD COUNT 15.4 10^3/ul (4.8-10.8)
[2017-12-31 01:09] LABS: ABNORMAL IP MESSAGE 1; BASOPHILS % 0.1 % (0.0-2.0); EOSINOPHILS # 0.2 10^3/ul (0.0-0.5); EOSINOPHILS % 1.2 % (0.0-7.0); HEMATOCRIT 21.3 % (42.0-52.0); LYMPHOCYTES # 1.6 10^3/ul (0.8-2.9); LYMPHOCYTES % 10.2 % (15.0-51.0); MEAN CORPUSCULAR HEMOGLOBIN 29.4 pg (29.0-33.0); MEAN CORPUSCULAR HGB CONC 32.4 g/dl (32.0-37.0); MEAN CORPUSCULAR VOLUME 90.6 fl (82.0-101.0); MEAN PLATELET VOLUME 11.4 fl (7.4-10.4); MONOCYTE # 1.2 10^3/ul (0.3-0.9); MONOCYTES % 7.6 % (0.0-11.0); PLATELET COUNT 370 10^3/UL (140-415); POSITIVE DIFF @See below; RED BLOOD COUNT 2.35 10^6/ul (4.70-6.10); RED CELL DISTRIBUTION WIDTH 15.2 % (11.5-14.5)
[2017-12-31 01:16] LABS: HEMOGLOBIN 6.9 g/dl (14.0-18.0)
[2017-12-31] MEDS: SOD CHLORIDE 0.9% 250 ML IV* (01:45)
[2017-12-31] MEDS: PHENYTOIN 100 MG INJ IV ×3 (05:07→21:35)
[2017-12-31 06:42] LABS: ADD MAN DIFF? NO
[2017-12-31 07:05] LABS: BASOPHILS % 0.2 % (0.0-2.0); EOSINOPHILS # 0.3 10^3/ul (0.0-0.5); EOSINOPHILS % 1.8 % (0.0-7.0); HEMATOCRIT 23.1 % (42.0-52.0); HEMOGLOBIN 7.6 g/dl (14.0-18.0); LYMPHOCYTES # 1.8 10^3/ul (0.8-2.9); LYMPHOCYTES % 10.4 % (15.0-51.0); MEAN CORPUSCULAR HEMOGLOBIN 29.8 pg (29.0-33.0); MEAN CORPUSCULAR HGB CONC 32.9 g/dl (32.0-37.0); MEAN CORPUSCULAR VOLUME 90.6 fl (82.0-101.0); MEAN PLATELET VOLUME 11.7 fl (7.4-10.4); MONOCYTE # 1.3 10^3/ul (0.3-0.9); MONOCYTES % 7.5 % (0.0-11.0); NEUTROPHIL # 13.1 10^3/ul (1.6-7.5); NEUTROPHILS % 76.9 % (39.0-77.0); PLATELET COUNT 359 10^3/UL (140-415); RED BLOOD COUNT 2.55 10^6/ul (4.70-6.10); RED CELL DISTRIBUTION WIDTH 15.2 % (11.5-14.5)
[2017-12-31] MEDS: LEVETIRACETAM (100 MG/ML) 5ML CUP NGT ×2 (09:15→21:31)
[2017-12-31] MEDS: ASPIRIN (EC) 81 MG TAB PO (09:16)
[2017-12-31] MEDS: BENAZEPRIL 40 MG TAB NGT (09:16)
[2017-12-31] MEDS: FAMOTIDINE 20 MG TAB NGT ×2 (09:17→21:34)
[2017-12-31] MEDS: CHLORTHALIDONE 25 MG TAB GTB (09:17)
[2017-12-31] MEDS: SPIRONOLACTONE 25 MG TAB NGT (09:17)
[2017-12-31] MEDS: TICAGRELOR 90 MG TABLET PO ×2 (09:18→21:44)
[2017-12-31] MEDS: INSULIN ASPART [NOVOLOG] 3 ML PEN SC ×2 (09:19→21:00)
[2017-12-31] MEDS: PANTOPRAZOLE 40 MG INJ IV ×2 (10:28→18:12)
[2017-12-31 18:42] LABS: ADD MAN DIFF? NO
[2017-12-31 18:44] LABS: WHITE BLOOD COUNT 20.6 10^3/ul (4.8-10.8)
[2017-12-31 18:44] LABS: ABNORMAL IP MESSAGE 1; BASOPHILS % 0.2 % (0.0-2.0); EOSINOPHILS # 0.4 10^3/ul (0.0-0.5); EOSINOPHILS % 2.1 % (0.0-7.0); HEMATOCRIT 25.7 % (42.0-52.0); HEMOGLOBIN 8.8 g/dl (14.0-18.0); LYMPHOCYTES # 1.8 10^3/ul (0.8-2.9); LYMPHOCYTES % 8.5 % (15.0-51.0); MEAN CORPUSCULAR HEMOGLOBIN 30.4 pg (29.0-33.0); MEAN CORPUSCULAR HGB CONC 34.2 g/dl (32.0-37.0); MEAN CORPUSCULAR VOLUME 88.9 fl (82.0-101.0); MEAN PLATELET VOLUME 11.4 fl (7.4-10.4); MONOCYTE # 1.5 10^3/ul (0.3-0.9); MONOCYTES % 7.2 % (0.0-11.0); NEUTROPHIL # 15.8 10^3/ul (1.6-7.5); NEUTROPHILS % 76.9 % (39.0-77.0); PLATELET COUNT 421 10^3/UL (140-415); POSITIVE DIFF @See below; RED BLOOD COUNT 2.89 10^6/ul (4.70-6.10)
[2017-12-31] MEDS: ATORVASTATIN 80 MG TAB PO (21:33)
[2018-01-01] MEDS: VALPROATE INJ 500 MG in SOD CHLORIDE 0.9% 50 ML IVPB ×5 (00:15→23:30)
[2018-01-01 01:05] LABS: ADD MAN DIFF? NO
[2018-01-01 01:07] LABS: WHITE BLOOD COUNT 19.5 10^3/ul (4.8-10.8)
[2018-01-01 01:07] LABS: BASOPHILS % 0.2 % (0.0-2.0); EOSINOPHILS # 0.4 10^3/ul (0.0-0.5); EOSINOPHILS % 2.2 % (0.0-7.0); HEMATOCRIT 24.9 % (42.0-52.0); HEMOGLOBIN 8.3 g/dl (14.0-18.0); LYMPHOCYTES # 1.6 10^3/ul (0.8-2.9); LYMPHOCYTES % 8.4 % (15.0-51.0); MEAN CORPUSCULAR HEMOGLOBIN 29.7 pg (29.0-33.0); MEAN CORPUSCULAR HGB CONC 33.3 g/dl (32.0-37.0); MEAN CORPUSCULAR VOLUME 89.2 fl (82.0-101.0); MEAN PLATELET VOLUME 11.4 fl (7.4-10.4); MONOCYTE # 1.3 10^3/ul (0.3-0.9); MONOCYTES % 6.7 % (0.0-11.0); NEUTROPHIL # 15.3 10^3/ul (1.6-7.5); NEUTROPHILS % 78.3 % (39.0-77.0); PLATELET COUNT 362 10^3/UL (140-415); RED BLOOD COUNT 2.79 10^6/ul (4.70-6.10); RED CELL DISTRIBUTION WIDTH 15.2 % (11.5-14.5)
[2018-01-01] MEDS: PANTOPRAZOLE 40 MG INJ IV ×2 (05:02→17:42)
[2018-01-01] MEDS: PHENYTOIN 100 MG INJ IV ×3 (05:02→22:01)
[2018-01-01] MEDS: POTASSIUM CHLORIDE 20 MEQ in DEXTROSE 5%-0.9% NACL 1,000 ML IV ×2 (05:03→16:54)
[2018-01-01 06:24] LABS: ADD MAN DIFF? NO
[2018-01-01 06:27] LABS: WHITE BLOOD COUNT 18.1 10^3/ul (4.8-10.8)
[2018-01-01 06:27] LABS: BASOPHILS % 0.2 % (0.0-2.0); EOSINOPHILS # 0.4 10^3/ul (0.0-0.5); EOSINOPHILS % 2.4 % (0.0-7.0); HEMATOCRIT 24.4 % (42.0-52.0); LYMPHOCYTES # 1.7 10^3/ul (0.8-2.9); LYMPHOCYTES % 9.2 % (15.0-51.0); MEAN CORPUSCULAR HEMOGLOBIN 29.7 pg (29.0-33.0); MEAN CORPUSCULAR HGB CONC 32.8 g/dl (32.0-37.0); MEAN CORPUSCULAR VOLUME 90.7 fl (82.0-101.0); MEAN PLATELET VOLUME 11.5 fl (7.4-10.4); MONOCYTE # 1.4 10^3/ul (0.3-0.9); MONOCYTES % 7.6 % (0.0-11.0); NEUTROPHIL # 13.7 10^3/ul (1.6-7.5); PLATELET COUNT 365 10^3/UL (140-415); RED BLOOD COUNT 2.69 10^6/ul (4.70-6.10); RED CELL DISTRIBUTION WIDTH 15.2 % (11.5-14.5)
[2018-01-01 07:28] LABS: ANION GAP 12 (8-16)
[2018-01-01 07:30] LABS: BLOOD UREA NITROGEN 21 mg/dl (7-20); CALCIUM 7.6 mg/dl (8.4-10.2); CARBON DIOXIDE 26 mmol/L (21-31); CHLORIDE 110 mmol/L (97-110); GLUCOSE 145 mg/dl (70-220); MAGNESIUM 1.8 mg/dl (1.7-2.5); PHOSPHORUS 2.8 mg/dl (2.5-4.9); POTASSIUM 4.1 mmol/L (3.5-5.1); SODIUM 144 mmol/L (135-144)
[2018-01-01] MEDS: LEVETIRACETAM (100 MG/ML) 5ML CUP NGT ×2 (08:19→21:47)
[2018-01-01] MEDS: TICAGRELOR 90 MG TABLET PO ×2 (08:20→21:54)
[2018-01-01] MEDS: INSULIN ASPART [NOVOLOG] 3 ML PEN SC ×2 (08:21→21:00)
[2018-01-01] MEDS: FAMOTIDINE 20 MG TAB NGT ×2 (08:21→21:53)
[2018-01-01] MEDS: BENAZEPRIL 40 MG TAB NGT (08:21)
[2018-01-01] MEDS: ASPIRIN (EC) 81 MG TAB PO (08:21)
[2018-01-01] MEDS: CHLORTHALIDONE 25 MG TAB GTB (08:22)
[2018-01-01] MEDS: SPIRONOLACTONE 25 MG TAB NGT (08:22)
[2018-01-01] MEDS: hydrALAzine 20 MG INJ IV (15:47)
[2018-01-01] MEDS: ATORVASTATIN 80 MG TAB PO (21:48)
[2018-01-02] MEDS: PANTOPRAZOLE 40 MG INJ IV ×2 (05:18→18:37)
[2018-01-02] MEDS: PHENYTOIN 100 MG INJ IV ×3 (05:18→22:18)
[2018-01-02] MEDS: VALPROATE INJ 500 MG in SOD CHLORIDE 0.9% 50 ML IVPB ×4 (05:19→23:25)
[2018-01-02] MEDS ORDERED: ALLOPURINOL 300 MG TAB PO (09:00)
[2018-01-02] MEDS ORDERED: ASPIRIN 81 MG TAB PO (09:00)
[2018-01-02] MEDS ORDERED: AMLODIPINE 5 MG TAB PO (09:00)
[2018-01-02] MEDS ORDERED: CALCIUM/VITAMIN D (500/200) TAB PO (09:00)
[2018-01-02] MEDS ORDERED: CHOLECALCIFEROL 1,000 UNIT TAB PO (09:00)
[2018-01-02] MEDS: INSULIN ASPART [NOVOLOG] 3 ML PEN SC ×2 (09:00→21:00)
[2018-01-02] MEDS ORDERED: FERROUS SULFATE (EC) 325 MG TAB PO (09:00)
[2018-01-02] MEDS: FAMOTIDINE 20 MG TAB NGT ×2 (09:28→22:17)
[2018-01-02] MEDS: LEVETIRACETAM (100 MG/ML) 5ML CUP NGT ×2 (09:28→22:18)
[2018-01-02] MEDS: ASPIRIN (EC) 81 MG TAB PO (09:29)
[2018-01-02] MEDS: CHLORTHALIDONE 25 MG TAB GTB (09:29)
[2018-01-02] MEDS: BENAZEPRIL 40 MG TAB NGT (09:29)
[2018-01-02] MEDS: SPIRONOLACTONE 25 MG TAB NGT (09:30)
[2018-01-02] MEDS: TICAGRELOR 90 MG TABLET PO ×2 (09:30→22:22)
[2018-01-02] MEDS ORDERED: EPOETIN 10000 UNITS/ML (NON ESRD/NON ONCOLOGY) SC (10:00)
[2018-01-02] MEDS: AMLODIPINE 2.5 MG TAB GTB (13:25)
[2018-01-02] MEDS ORDERED: LATANOPROST 0.005% 2.5 ML OPH BOTH EYES (21:00)
[2018-01-02] MEDS: ATORVASTATIN 80 MG TAB PO (22:17)
[2018-01-03] MEDS: PANTOPRAZOLE 40 MG INJ IV ×2 (05:35→17:50)
[2018-01-03] MEDS: PHENYTOIN 100 MG INJ IV ×3 (05:35→21:43)
[2018-01-03] MEDS: VALPROATE INJ 500 MG in SOD CHLORIDE 0.9% 50 ML IVPB ×4 (05:36→23:40)
[2018-01-03 06:04] LABS: WHITE BLOOD COUNT 15.1 10^3/ul (4.8-10.8)
[2018-01-03 06:04] LABS: ADD MAN DIFF? NO; BASOPHILS % 0.3 % (0.0-2.0); EOSINOPHILS # 0.3 10^3/ul (0.0-0.5); HEMOGLOBIN 8.8 g/dl (14.0-18.0); LYMPHOCYTES # 1.6 10^3/ul (0.8-2.9); LYMPHOCYTES % 10.8 % (15.0-51.0); MEAN CORPUSCULAR HEMOGLOBIN 30.7 pg (29.0-33.0); MEAN CORPUSCULAR HGB CONC 32.6 g/dl (32.0-37.0); MEAN CORPUSCULAR VOLUME 94.1 fl (82.0-101.0); MEAN PLATELET VOLUME 10.8 fl (7.4-10.4); MONOCYTE # 1.5 10^3/ul (0.3-0.9); MONOCYTES % 9.7 % (0.0-11.0); NEUTROPHIL # 11.1 10^3/ul (1.6-7.5); PLATELET COUNT 420 10^3/UL (140-415); RED BLOOD COUNT 2.87 10^6/ul (4.70-6.10); RED CELL DISTRIBUTION WIDTH 15.3 % (11.5-14.5)
[2018-01-03 07:21] LABS: ALBUMIN 2.5 g/dl (3.3-4.9); ANION GAP 13 (8-16); BLOOD UREA NITROGEN 23 mg/dl (7-20); CALCIUM 7.9 mg/dl (8.4-10.2); CARBON DIOXIDE 29 mmol/L (21-31); CHLORIDE 105 mmol/L (97-110); GLUCOSE 99 mg/dl (70-220); MAGNESIUM 1.9 mg/dl (1.7-2.5); PHOSPHORUS 3.9 mg/dl (2.5-4.9); POTASSIUM 3.9 mmol/L (3.5-5.1); SODIUM 143 mmol/L (135-144)
[2018-01-03] MEDS: INSULIN ASPART [NOVOLOG] 3 ML PEN SC ×2 (09:00→21:00)
[2018-01-03] MEDS: BENAZEPRIL 40 MG TAB NGT (09:07)
[2018-01-03] MEDS: SPIRONOLACTONE 25 MG TAB NGT (09:07)
[2018-01-03] MEDS: ASPIRIN (EC) 81 MG TAB PO (09:07)
[2018-01-03] MEDS: AMLODIPINE 2.5 MG TAB GTB (09:07)
[2018-01-03] MEDS: FAMOTIDINE 20 MG TAB NGT ×2 (09:08→21:08)
[2018-01-03] MEDS: CHLORTHALIDONE 25 MG TAB GTB (09:09)
[2018-01-03] MEDS: LEVETIRACETAM (100 MG/ML) 5ML CUP NGT ×2 (09:11→21:08)
[2018-01-03] MEDS: TICAGRELOR 90 MG TABLET PO ×2 (09:14→21:12)
[2018-01-03] MEDS: ATORVASTATIN 80 MG TAB PO (21:08)
[2018-01-04] MEDS: PHENYTOIN 100 MG INJ IV ×3 (05:00→21:15)
[2018-01-04] MEDS: PANTOPRAZOLE 40 MG INJ IV ×2 (05:00→16:34)
[2018-01-04] MEDS: VALPROATE INJ 500 MG in SOD CHLORIDE 0.9% 50 ML IVPB ×3 (05:00→16:34)
[2018-01-04] MEDS: INSULIN ASPART [NOVOLOG] 3 ML PEN SC ×2 (07:51→21:00)
[2018-01-04] MEDS: TICAGRELOR 90 MG TABLET PO ×2 (08:27→21:17)
[2018-01-04] MEDS: CHLORTHALIDONE 25 MG TAB GTB (08:29)
[2018-01-04] MEDS: FAMOTIDINE 20 MG TAB NGT ×2 (08:30→21:15)
[2018-01-04] MEDS: LEVETIRACETAM (100 MG/ML) 5ML CUP NGT ×2 (08:30→21:14)
[2018-01-04] MEDS: ASPIRIN (EC) 81 MG TAB PO (08:30)
[2018-01-04] MEDS: AMLODIPINE 2.5 MG TAB GTB (08:30)
[2018-01-04] MEDS: BENAZEPRIL 40 MG TAB NGT (08:30)
[2018-01-04] MEDS: SPIRONOLACTONE 25 MG TAB NGT (08:30)
[2018-01-04 08:54] LABS: ADD MAN DIFF? NO
[2018-01-04 08:58] LABS: WHITE BLOOD COUNT 14.3 10^3/ul (4.8-10.8)
[2018-01-04 08:58] LABS: BASOPHILS % 0.2 % (0.0-2.0); EOSINOPHILS # 0.2 10^3/ul (0.0-0.5); EOSINOPHILS % 1.5 % (0.0-7.0); HEMATOCRIT 27.5 % (42.0-52.0); HEMOGLOBIN 8.7 g/dl (14.0-18.0); LYMPHOCYTES # 1.2 10^3/ul (0.8-2.9); LYMPHOCYTES % 8.5 % (15.0-51.0); MEAN CORPUSCULAR HEMOGLOBIN 30.2 pg (29.0-33.0); MEAN CORPUSCULAR HGB CONC 31.6 g/dl (32.0-37.0); MEAN CORPUSCULAR VOLUME 95.5 fl (82.0-101.0); MONOCYTE # 1.3 10^3/ul (0.3-0.9); MONOCYTES % 8.9 % (0.0-11.0); NEUTROPHIL # 11.3 10^3/ul (1.6-7.5); NEUTROPHILS % 78.9 % (39.0-77.0); PLATELET COUNT 370 10^3/UL (140-415); RED BLOOD COUNT 2.88 10^6/ul (4.70-6.10); RED CELL DISTRIBUTION WIDTH 15.4 % (11.5-14.5)
[2018-01-04 09:33] LABS: ANION GAP 13 (8-16); BLOOD UREA NITROGEN 28 mg/dl (7-20); CALCIUM 8.1 mg/dl (8.4-10.2); CARBON DIOXIDE 31 mmol/L (21-31); CHLORIDE 102 mmol/L (97-110); CREATININE 0.99 mg/dl (0.61-1.24); GLUCOSE 107 mg/dl (70-220); PHOSPHORUS 3.4 mg/dl (2.5-4.9); POTASSIUM 4.1 mmol/L (3.5-5.1); SODIUM 142 mmol/L (135-144)
[2018-01-04] MEDS: ATORVASTATIN 80 MG TAB PO (21:15)
[2018-01-05] MEDS: VALPROATE INJ 500 MG in SOD CHLORIDE 0.9% 50 ML IVPB ×3 (00:09→12:11)
[2018-01-05] MEDS: PANTOPRAZOLE 40 MG INJ IV (05:36)
[2018-01-05] MEDS: PHENYTOIN 100 MG INJ IV (05:37)
[2018-01-05] MEDS: INSULIN ASPART [NOVOLOG] 3 ML PEN SC ×2 (08:03→21:29)
[2018-01-05] MEDS: AMLODIPINE 2.5 MG TAB GTB (08:48)
[2018-01-05] MEDS: ASPIRIN (EC) 81 MG TAB PO (08:48)
[2018-01-05] MEDS: SPIRONOLACTONE 25 MG TAB NGT (08:48)
[2018-01-05] MEDS: FAMOTIDINE 20 MG TAB NGT (08:48)
[2018-01-05] MEDS: LEVETIRACETAM (100 MG/ML) 5ML CUP NGT ×2 (08:48→21:24)
[2018-01-05] MEDS: CHLORTHALIDONE 25 MG TAB GTB (08:48)
[2018-01-05] MEDS: BENAZEPRIL 40 MG TAB NGT (08:49)
[2018-01-05 08:51] LABS: ADD MAN DIFF? NO
[2018-01-05] MEDS: TICAGRELOR 90 MG TABLET PO ×2 (08:57→21:25)
[2018-01-05 09:00] LABS: WHITE BLOOD COUNT 12.1 10^3/ul (4.8-10.8)
[2018-01-05 09:00] LABS: BASOPHILS % 0.2 % (0.0-2.0); EOSINOPHILS # 0.2 10^3/ul (0.0-0.5); EOSINOPHILS % 1.9 % (0.0-7.0); HEMATOCRIT 25.8 % (42.0-52.0); HEMOGLOBIN 8.2 g/dl (14.0-18.0); LYMPHOCYTES # 1.4 10^3/ul (0.8-2.9); LYMPHOCYTES % 11.7 % (15.0-51.0); MEAN CORPUSCULAR HEMOGLOBIN 30.3 pg (29.0-33.0); MEAN CORPUSCULAR HGB CONC 31.8 g/dl (32.0-37.0); MEAN CORPUSCULAR VOLUME 95.2 fl (82.0-101.0); MEAN PLATELET VOLUME 11.2 fl (7.4-10.4); MONOCYTE # 1.1 10^3/ul (0.3-0.9); MONOCYTES % 8.7 % (0.0-11.0); NEUTROPHIL # 9.1 10^3/ul (1.6-7.5); NEUTROPHILS % 75.9 % (39.0-77.0); PLATELET COUNT 325 10^3/UL (140-415); RED BLOOD COUNT 2.71 10^6/ul (4.70-6.10); RED CELL DISTRIBUTION WIDTH 15.3 % (11.5-14.5)
[2018-01-05 09:23] LABS: ANION GAP 11 (8-16); BLOOD UREA NITROGEN 27 mg/dl (7-20); CARBON DIOXIDE 32 mmol/L (21-31); CHLORIDE 102 mmol/L (97-110); CREATININE 0.99 mg/dl (0.61-1.24); GLUCOSE 135 mg/dl (70-220); MAGNESIUM 2.1 mg/dl (1.7-2.5); PHOSPHORUS 3.2 mg/dl (2.5-4.9); POTASSIUM 3.8 mmol/L (3.5-5.1); SODIUM 141 mmol/L (135-144)
[2018-01-05] MEDS: ACETAMINOPHEN 325 MG TAB PO (12:12)
[2018-01-05] MEDS: PHENYTOIN (100 MG/4 ML) CUP GTB ×2 (12:55→21:23)
[2018-01-05] MEDS: VALPROIC ACID LIQUID CUP 250 MG/5 ML CUP GTB (17:10)
[2018-01-05] MEDS: LANSOPRAZOLE 30 MG CAP GTB (17:10)
[2018-01-05] MEDS: ATORVASTATIN 80 MG TAB PO (21:24)
[2018-01-06] MEDS: VALPROIC ACID LIQUID CUP 250 MG/5 ML CUP GTB ×4 (00:55→17:36)
[2018-01-06] MEDS: LANSOPRAZOLE 30 MG CAP GTB ×2 (05:39→17:36)
[2018-01-06] MEDS: PHENYTOIN (100 MG/4 ML) CUP GTB ×2 (09:19→13:35)
[2018-01-06] MEDS: LEVETIRACETAM (100 MG/ML) 5ML CUP NGT (09:19)
[2018-01-06] MEDS: ASPIRIN (EC) 81 MG TAB PO (09:20)
[2018-01-06] MEDS: CHLORTHALIDONE 25 MG TAB GTB (09:20)
[2018-01-06] MEDS: SPIRONOLACTONE 25 MG TAB NGT (09:20)
[2018-01-06] MEDS: AMLODIPINE 2.5 MG TAB GTB (09:21)
[2018-01-06] MEDS: BENAZEPRIL 40 MG TAB NGT (09:21)
[2018-01-06] MEDS: TICAGRELOR 90 MG TABLET PO (09:23)
[2018-01-06] MEDS: INSULIN ASPART [NOVOLOG] 3 ML PEN SC (09:43)
[2018-01-06] MEDS: ACETAMINOPHEN 325 MG TAB PO (11:02)
[2018-01-06] MEDS: SOD CHLORIDE 0.9% 500 ML IV (12:30)
[2018-01-07] MEDS ORDERED: CHLORTHALIDONE 25 MG TAB GTB ×2 (09:00)
[2018-01-09] MEDS ORDERED: ALENDRONATE 70 MG TAB PO (09:00)
== END 2018-01-06 17:55 | disposition short-term general hospital (02) | DRG 3 ==
LOC: TEL 12-31 18:24 → E/R 12:03 → CCL 12:17 → SDS 12:17 → ICU 13:50 → CCL 12:19 → ICU 12:19
PROVIDERS: Family Medicine
PROC: 027034Z Dilation of Coronary Artery, One Artery with Drug-eluting Intraluminal Device, Percutaneous Approach (ICD-10-PCS; 2017-12-14 10:30)
PROC: 4A023N7 Measurement of Cardiac Sampling and Pressure, Left Heart, Percutaneous Approach (ICD-10-PCS; 2017-12-14 10:30)
PROC: B211YZZ Fluoroscopy of Multiple Coronary Arteries using Other Contrast (ICD-10-PCS; 2017-12-14 10:30)
PROC: B215YZZ Fluoroscopy of Left Heart using Other Contrast (ICD-10-PCS; 2017-12-14 10:30)
PROC: 0B113F4 Bypass Trachea to Cutaneous with Tracheostomy Device, Percutaneous Approach (ICD-10-PCS; principal; 2017-12-14 12:19)
PROC: 5A1955Z Respiratory Ventilation, Greater than 96 Consecutive Hours (ICD-10-PCS; 2017-12-14 12:19)
PROC: 0DH63UZ Insertion of Feeding Device into Stomach, Percutaneous Approach (ICD-10-PCS; 2017-12-14 12:19)
PROC: 4A10X4Z Monitoring of Central Nervous Electrical Activity, External Approach (ICD-10-PCS; 2017-12-14 12:19)
PROC: 4A10X4Z Monitoring of Central Nervous Electrical Activity, External Approach (ICD-10-PCS; 2017-12-14 12:19)
PROC: 30233N1 Transfusion of Nonautologous Red Blood Cells into Peripheral Vein, Percutaneous Approach (ICD-10-PCS; 2017-12-14 12:19)
PROC: 02HV33Z Insertion of Infusion Device into Superior Vena Cava, Percutaneous Approach (ICD-10-PCS; 2017-12-14 12:19)
PROC: B548ZZA Ultrasonography of Superior Vena Cava, Guidance (ICD-10-PCS; 2017-12-14 12:19)
DX: I21.9 Acute myocardial infarction, unspecified (principal); I63.9 Cerebral infarction, unspecified; I49.01 Ventricular fibrillation; G93.1 Anoxic brain damage, not elsewhere classified; A41.9 Sepsis, unspecified organism; R13.10 Dysphagia, unspecified; I82.621 Acute embolism and thrombosis of deep veins of right upper extremity; I46.9 Cardiac arrest, cause unspecified; J96.00 Acute respiratory failure, unspecified whether with hypoxia or hypercapnia; E87.0 Hyperosmolality and hypernatremia; G40.89 Other seizures; N39.0 Urinary tract infection, site not specified; D62 Acute posthemorrhagic anemia; K92.1 Melena; T82.868A Thrombosis due to vascular prosthetic devices, implants and grafts, initial encounter; E87.6 Hypokalemia; R73.9 Hyperglycemia, unspecified; I10 Essential (primary) hypertension; E83.42 Hypomagnesemia; I25.5 Ischemic cardiomyopathy; Y71.8 Miscellaneous cardiovascular devices associated with adverse incidents, not elsewhere classified; Y92.239 Unspecified place in hospital as the place of occurrence of the external cause
CPT/HCPCS: 36430; 36569; 36600; 70450; 70551; 71045; 72020; 76775; 76937; 80048; 80053; 80061; 80069; 80185; 80307; 81001; 82550; 82553; 82803; 82962; 83036; 83605; 83735; 83880; 84100; 84443; 84484; 85025; 85610; 85730; 86850; 86900; 86901; 86920; 87040; 87070; 87075; 87081; 87086; 93005; 93306; 93458; 93971; 94002; 94003; 94770; 95819; 99285-25